=== PATIENT | female | born 1970 | race African-American/Black ===

== ENCOUNTER 2019-09-17 01:49 | Inpatient (IN) ==
[2019-09-17] MEDS ORDERED: SODIUM CHLORIDE 0.9% 1,000 ML IV STA ×2 (02:16→05:48)
[2019-09-17] MEDS ORDERED: MORPHINE 4 MG/1 ML VIAL IV STA (02:16)
[2019-09-17] MEDS ORDERED: ONDANSETRON 4 MG/2 ML VIAL ONE (02:20)
[2019-09-17] MEDS ORDERED: ONDANSETRON 4 MG/2 ML VIAL IV STA (02:44)
[2019-09-17 03:00] LABS: Alanine Aminotransferase 23 U/L (13-56); Albumin 2.8 G/DL (3.4-5.0); Alkaline Phosphatase 80 U/L (45-117); Aspartate Amino Transferase 17 U/L (0-37); Bilirubin,Total < 0.39 MG/DL (0.2-1.0); Blood Urea Nitrogen 36 MG/DL (7-18); Calcium 8.5 MG/DL (8.5-10.1); Estimated Glom Filtration Rate 38 ML/MIN; Glucose 481 MG/DL (74-106); Osmolality,Calculated 292.5 MOS/KG (273-304); Total Protein 8.7 G/DL (6.4-8.3)
[2019-09-17 03:07] LABS: Basophils # 0.1 10*3/uL (0.0-0.2); Basophils % 0.4 % (0.0-0.8); Eosinophils % 0.2 % (0.00-10.9); Hemoglobin 10.7 GM/DL (12.0-16.0); Immature Granulocytes % 0.9 %; Immature Granulocytes Absolute 0.11 #; Lymphocytes # 1.5 10*3/uL (1.4-4.0); Mean Corpuscular HGB Conc 29.7 GM/DL (32-36); Mean Corpuscular Volume 85.7 FL (87-102); Mean Platelet Volume 11.9 FL (9.6-12.0); Monocytes % 3.6 % (1.7-12.7); Neutrophils % 82.9 % (38.7-73.9); Platelet Count 315 T/CUMM (130-400); Red Cell Distribution Width 14.5 % (9.3-17.3); White Blood Count 12.8 T/CUMM (4-12)
[2019-09-17] MEDS ORDERED: HEPARIN 5,000 UNIT/1 ML VIAL IV ONE ×3 (05:01→06:00)
[2019-09-17] MEDS: HEPARIN DRIP 25,000 UNITS/500 ML PREMIX IV SCH (05:40)
[2019-09-17] MEDS: PIPERACILLIN/TAZOBACTAM 3,375 MG in SODIUM CHLORIDE 0.9% 100 ML IV SCH ×2 (08:06→16:30)
[2019-09-17] MEDS ORDERED: PROMETHAZINE 25 MG/1 ML VIAL IM PRN (08:49)
[2019-09-17] MEDS ORDERED: ALBUTEROL/IPRATROPIUM 3 ML NEB RESP TX PRN (08:49)
[2019-09-17] MEDS ORDERED: SULFAMETHOX/TRIMETHOPRIM 400-80 MG TABLET PO SCH (09:00)
[2019-09-17] MEDS ORDERED: ELVITEG COB EMTRI TENOF ALAFEN PO SCH (09:00)
[2019-09-17 09:43] LABS: Apearance,Urine Slightly Hazy (Clear); Bacteria,Urine Occasional /HPF (Few); Bilirubin,Urine Negative (Negative); Blood, Urine Small mg/dL (Negative); Glucose,Urine (UA) >=500 mg/dL (Negative); Hyaline Casts,Urine 4 /LPF (0-3); Ketones,Urine Negative (Negative); Mucus,Urine Occasional /LPF (Occasional); Nitrite,Urine Negative (Negative); Protein,Urine 100 MG/DL; RBC,Urine 2 /HPF (0-4); Squamous Epithelial Cell,Urine Occasional /HPF (0-10); Urine Color Yellow (Yellow); Urine Specific Gravity 1.028 (1.001-1.035); Urine Urobilinogen < 2.0 EU/DL (0.2-1.0); WBC,Urine <1 /HPF (0-6)
[2019-09-17] MEDS: LACTATED RINGERS 1,000 ML IV SCH ×3 (09:46→21:15)
[2019-09-17] MEDS: MORPHINE 4 MG/1 ML VIAL IV PRN (09:47)
[2019-09-17] MEDS: PANTOPRAZOLE 40 MG VIAL IV SCH (09:54)
[2019-09-17] MEDS ORDERED: LACTATED RINGERS 1,000 ML IV ONE ×2 (10:51→15:09)
[2019-09-17] MEDS ORDERED: LEVOFLOXACIN INJ 750 MG in PREMIX 1 EACH IV SCH (11:30)
[2019-09-17] MEDS: INSULIN REGULAR 100 UNIT/ML SUBCUT SCH ×3 (15:10→21:12)
[2019-09-17] MEDS: metroNIDAZOLE INJ 500 MG in PREMIX 1 EACH IV SCH ×2 (15:30→21:17)
[2019-09-17] MEDS ORDERED: PHENYLEPHRINE DRIP 40 MG/250 ML PREMIX IV ONE (17:27)
[2019-09-17] MEDS: PHENYLEPHRINE DRIP 40 MG/250 ML PREMIX IV PRN ×2 (17:45→22:20)
[2019-09-18] MEDS ORDERED: LACTATED RINGERS 1,000 ML IV ONE ×2 (00:05→04:50)
[2019-09-18] MEDS: INSULIN REGULAR 100 UNIT/ML SUBCUT SCH ×4 (00:05→17:53)
[2019-09-18] MEDS: PIPERACILLIN/TAZOBACTAM 3,375 MG in SODIUM CHLORIDE 0.9% 100 ML IV SCH ×3 (00:10→17:51)
[2019-09-18] MEDS: PHENYLEPHRINE DRIP 40 MG/250 ML PREMIX IV PRN ×6 (00:35→18:41)
[2019-09-18] MEDS: INSULIN REGULAR DRIP 100 ML IV PRN ×2 (01:27→17:00)
[2019-09-18] MEDS: NOREPINEPHRINE 8 MG in SODIUM CHLORIDE 0.9% 242 ML IV PRN ×2 (01:27→17:51)
[2019-09-18] MEDS ORDERED: CLINDAMYCIN INJ 900 MG in PREMIX 1 EACH IV ONE (05:00)
[2019-09-18] MEDS: metroNIDAZOLE INJ 500 MG in PREMIX 1 EACH IV SCH ×4 (05:04→22:58)
[2019-09-18] MEDS: LACTATED RINGERS 1,000 ML IV SCH ×2 (05:55→12:00)
[2019-09-18] MEDS ORDERED: ALBUMIN 5% 12.5 GM/250 ML VIAL IV ONE (05:59)
[2019-09-18 06:11] LABS: Basophils % 0.1 % (0.0-0.8); Immature Granulocytes % 3.4 %; Immature Granulocytes Absolute 0.39 #; Lymphocytes % 8.2 % (21.3-54.2); Mean Corpuscular HGB Conc 28.3 GM/DL (32-36); Mean Corpuscular Volume 91.5 FL (87-102); Mean Platelet Volume 11.1 FL (9.6-12.0); Monocytes % 3.5 % (1.7-12.7); NRBC # 0.03 10*3/uL; Neutrophils % 84.8 % (38.7-73.9); Platelet Count 143 T/CUMM (130-400); Red Blood Count 1.89 MC/CUMM (3.8-5.5); Red Cell Distribution Width 14.8 % (9.3-17.3); White Blood Count 11.6 T/CUMM (4-12)
[2019-09-18 06:16] LABS: Alanine Aminotransferase 143 U/L (13-56); Albumin 1.8 G/DL (3.4-5.0); Alkaline Phosphatase 39 U/L (45-117); Aspartate Amino Transferase 303 U/L (0-37); Bilirubin,Total < 0.39 MG/DL (0.2-1.0); Blood Urea Nitrogen 44 MG/DL (7-18); Calcium 7.1 MG/DL (8.5-10.1); Estimated Glom Filtration Rate 18 ML/MIN; Glucose 467 MG/DL (74-106); Osmolality,Calculated 296.4 MOS/KG (273-304); Total Protein 5.2 G/DL (6.4-8.3)
[2019-09-18 06:17] LABS: Hematocrit 17.3 VOL% (35.7-47.0); Hemoglobin 4.9 GM/DL (12.0-16.0)
[2019-09-18 06:31] LABS: Hypochromasia 1+
[2019-09-18] MEDS ORDERED: PHENYLEPHRINE DRIP 20 MG/250 ML PREMIX IV ONE (06:52)
[2019-09-18] MEDS ORDERED: SODIUM CHLORIDE 0.9% 1,000 ML IV PRN ×4 (07:03→21:26)
[2019-09-18] MEDS ORDERED: SEVOFLURANE 1 UNIT/15 MINUTE INH ONE (08:03)
[2019-09-18] MEDS ORDERED: SODIUM CHLORIDE 0.9% 1,000 ML IV ONE (08:04)
[2019-09-18] MEDS ORDERED: MIDAZOLAM 2 MG/2 ML VIAL ONE (08:04)
[2019-09-18] MEDS ORDERED: ROCURONIUM 100 MG/10 ML VIAL IV ONE (08:04)
[2019-09-18] MEDS ORDERED: KETAMINE 500 MG/10 ML VIAL ONE (08:04)
[2019-09-18] MEDS ORDERED: SUCCINYLCHOLINE 200 MG/10 ML VIAL ONE (08:04)
[2019-09-18] MEDS ORDERED: MIDAZOLAM 10 MG/2 ML VIAL ONE (08:04)
[2019-09-18] MEDS ORDERED: ETOMIDATE 40 MG/20 ML VIAL IV ONE (08:04)
[2019-09-18 09:14] LABS: ABG Base Excess -18.2 MMOL/L (-2.5-2.5); ABG HCO3 10.7 MMOL/L (20-26); ABG PCO2 33.1 MM HG (35-48); ABG PO2 87.8 MM HG (80-95)
[2019-09-18 09:15] LABS: ABG PH 7.104 (7.35-7.45)
[2019-09-18] MEDS: PANTOPRAZOLE 40 MG VIAL IV SCH (09:15)
[2019-09-18 10:21] LABS: Hematocrit 27.6 VOL% (35.7-47.0)
[2019-09-18 10:31] LABS: Hemoglobin 8.4 GM/DL (12.0-16.0)
[2019-09-18 10:47] LABS: Basophils % 0.2 % (0.0-0.8); Eosinophils % 0.1 % (0.00-10.9); Hemoglobin 8.6 GM/DL (12.0-16.0); Immature Granulocytes % 4.4 %; Immature Granulocytes Absolute 0.41 #; Lymphocytes # 1.2 10*3/uL (1.4-4.0); Lymphocytes % 12.6 % (21.3-54.2); Mean Corpuscular HGB Conc 29.7 GM/DL (32-36); Mean Corpuscular Volume 94.5 FL (87-102); Mean Platelet Volume 11.4 FL (9.6-12.0); Monocytes % 4.3 % (1.7-12.7); NRBC # 0.03 10*3/uL; Neutrophils % 78.4 % (38.7-73.9); Red Cell Distribution Width 16.4 % (9.3-17.3); White Blood Count 9.4 T/CUMM (4-12)
[2019-09-18 10:52] LABS: Platelet Count 81 T/CUMM (130-400); Red Blood Count 3.07 MC/CUMM (3.8-5.5)
[2019-09-18 11:05] LABS: Band Neutrophils 1 % (0-10); Lymphocytes 16 % (20-55); Nucleated Red Blood Cells 1 (0-5); Platelet Estimate Decreased; Segmented Neutrophils 79 % (50-85); Total Cells Counted 100
[2019-09-18 11:06] LABS: Hypochromasia 1+
[2019-09-18 11:16] LABS: Alanine Aminotransferase 224 U/L (13-56); Albumin 1.7 G/DL (3.4-5.0); Alkaline Phosphatase 38 U/L (45-117); Aspartate Amino Transferase 586 U/L (0-37); Bilirubin,Total < 0.39 MG/DL (0.2-1.0); Blood Urea Nitrogen 44 MG/DL (7-18); Calcium 7.3 MG/DL (8.5-10.1); Estimated Glom Filtration Rate 19 ML/MIN; Glucose 268 MG/DL (74-106); Osmolality,Calculated 287.2 MOS/KG (273-304); Total Protein 5.3 G/DL (6.4-8.3)
[2019-09-18 12:41] LABS: ABG Base Excess -15.9 MMOL/L (-2.5-2.5); ABG HCO3 11.6 MMOL/L (20-26); ABG Oxygen Saturation 96.1 % (95-100); ABG PCO2 33.4 MM HG (35-48); ABG PO2 88.3 MM HG (80-95); ABG TCO2 12.6 MMOL/L (23-27); Allen Test Positive; Pt O2 Delivery Device Ventilator
[2019-09-18 12:43] LABS: ABG PH 7.158 (7.35-7.45)
[2019-09-18] MEDS: HEPARIN DRIP 25,000 UNITS/500 ML PREMIX IV SCH (13:45)
[2019-09-18] MEDS: ELVITEG COB EMTRI TENOF ALAFEN PO SCH (13:46)
[2019-09-18] MEDS: SULFAMETHOX/TRIMETHOPRIM 800-160 MG TABLET PO SCH (13:46)
[2019-09-18] MEDS: SODIUM BICARB INJ 100 MEQ in SODIUM CHLORIDE 0.45% 1,000 ML IV SCH (14:30)
[2019-09-18] MEDS: DEXTROSE 10% 250 ML BAG IV PRN (18:19)
[2019-09-18] MEDS: ONDANSETRON 4 MG/2 ML VIAL IV PRN (19:22)
[2019-09-18] MEDS: MORPHINE 4 MG/1 ML VIAL IV PRN ×2 (19:28→23:01)
[2019-09-18 21:18] LABS: Basophils % 0.2 % (0.0-0.8); Hematocrit 21.5 VOL% (35.7-47.0); Immature Granulocytes % 1.4 %; Immature Granulocytes Absolute 0.09 #; Lymphocytes # 0.7 10*3/uL (1.4-4.0); Lymphocytes % 10.6 % (21.3-54.2); Mean Corpuscular HGB Conc 32.6 GM/DL (32-36); Mean Corpuscular Volume 86.7 FL (87-102); Mean Platelet Volume 10.8 FL (9.6-12.0); Monocytes % 9.1 % (1.7-12.7); NRBC # 0.19 10*3/uL; Neutrophils % 78.7 % (38.7-73.9); Platelet Count 61 T/CUMM (130-400); Red Blood Count 2.48 MC/CUMM (3.8-5.5); Red Cell Distribution Width 15.1 % (9.3-17.3); White Blood Count 6.4 T/CUMM (4-12)
[2019-09-18 21:49] LABS: Band Neutrophils 6 % (0-10); Lymphocytes 10 % (20-55); Nucleated Red Blood Cells 1 (0-5); Segmented Neutrophils 80 % (50-85); Total Cells Counted 100
[2019-09-18 21:51] LABS: Platelet Estimate Decreased; Polychromasia Slight
[2019-09-19] MEDS: SODIUM BICARB INJ 100 MEQ in SODIUM CHLORIDE 0.45% 1,000 ML IV SCH ×3 (00:41→23:02)
[2019-09-19] MEDS ORDERED: ACETAMINOPHEN 650 MG SUPP RECTAL PRN (00:54)
[2019-09-19] MEDS: INSULIN REGULAR 100 UNIT/ML SUBCUT SCH ×4 (01:24→17:00)
[2019-09-19] MEDS: PIPERACILLIN/TAZOBACTAM 3,375 MG in SODIUM CHLORIDE 0.9% 100 ML IV SCH ×2 (01:41→11:28)
[2019-09-19] MEDS: PHENYLEPHRINE DRIP 40 MG/250 ML PREMIX IV PRN ×2 (01:43→08:30)
[2019-09-19] MEDS: MORPHINE 4 MG/1 ML VIAL IV PRN ×3 (03:35→10:40)
[2019-09-19] MEDS: metroNIDAZOLE INJ 500 MG in PREMIX 1 EACH IV SCH ×4 (03:36→23:02)
[2019-09-19 04:15] LABS: ABG Base Excess -8.6 MMOL/L (-2.5-2.5); ABG HCO3 17.5 MMOL/L (20-26); ABG Oxygen Saturation 99.2 % (95-100); ABG PCO2 27.4 MM HG (35-48); ABG PH 7.368 (7.35-7.45); ABG TCO2 14.7 MMOL/L (23-27); Allen Test Positive; Pt O2 Delivery Device Ventilator
[2019-09-19 04:16] LABS: Basophils % 0.1 % (0.0-0.8); Hematocrit 23.8 VOL% (35.7-47.0); Immature Granulocytes % 1.1 %; Immature Granulocytes Absolute 0.11 #; Lymphocytes # 1.1 10*3/uL (1.4-4.0); Mean Corpuscular HGB Conc 33.6 GM/DL (32-36); Mean Corpuscular Volume 83.2 FL (87-102); NRBC # 0.28 10*3/uL; Neutrophils % 79.8 % (38.7-73.9); Platelet Count 57 T/CUMM (130-400); Red Blood Count 2.86 MC/CUMM (3.8-5.5); Red Cell Distribution Width 15.1 % (9.3-17.3); White Blood Count 10.4 T/CUMM (4-12)
[2019-09-19 04:37] LABS: Band Neutrophils 4 % (0-10); Lymphocytes 7 % (20-55); Nucleated Red Blood Cells 1 (0-5); Platelet Estimate Decreased; Segmented Neutrophils 85 % (50-85); Total Cells Counted 100
[2019-09-19 04:38] LABS: Hypochromasia 1+
[2019-09-19 04:39] LABS: Albumin 1.6 G/DL (3.4-5.0); Bilirubin,Total 0.9 MG/DL (0.2-1.0); Calcium 7.3 MG/DL (8.5-10.1); Total Protein 4.8 G/DL (6.4-8.3)
[2019-09-19] MEDS: ONDANSETRON 4 MG/2 ML VIAL IV PRN (06:04)
[2019-09-19] MEDS ORDERED: SODIUM POLYSTYRENE SULFATE 15 GM/60 ML BOTTLE RECTAL ONE (08:20)
[2019-09-19] MEDS ORDERED: MAGNESIUM SULF RIDER 4 GM in PREMIX 1 EACH IV ONE (08:20)
[2019-09-19] MEDS: PANTOPRAZOLE 40 MG VIAL IV SCH (08:38)
[2019-09-19] MEDS: LEVOFLOXACIN INJ 750 MG in PREMIX 1 EACH IV SCH (08:38)
[2019-09-19] MEDS: SULFAMETHOX/TRIMETHOPRIM 800-160 MG TABLET PO SCH (09:51)
[2019-09-19] MEDS: ELVITEG COB EMTRI TENOF ALAFEN PO SCH (09:52)
[2019-09-19] MEDS ORDERED: ALBUMIN 25% 25 GM in PREMIX 1 EACH IV ONE (11:55)
[2019-09-19 15:23] LABS: Calcium 7.2 MG/DL (8.5-10.1)
[2019-09-19 15:28] LABS: Osmolality,Calculated 296.5 MOS/KG (273-304)
[2019-09-19] MEDS: HYDROmorphone 2 MG/1 ML VIAL IV PRN (15:36)
[2019-09-19 16:27] LABS: Hematocrit 19.2 VOL% (35.7-47.0)
[2019-09-19 16:32] LABS: Hemoglobin 6.3 GM/DL (12.0-16.0)
[2019-09-19 19:31] LABS: Phospholipid Ab IgM, S < 9.4 MPL
[2019-09-20] MEDS: INSULIN REGULAR 100 UNIT/ML SUBCUT SCH ×4 (01:14→18:15)
[2019-09-20] MEDS: PIPERACILLIN/TAZOBACTAM 3,375 MG in SODIUM CHLORIDE 0.9% 100 ML IV SCH ×2 (01:23→12:58)
[2019-09-20] MEDS: metroNIDAZOLE INJ 500 MG in PREMIX 1 EACH IV SCH ×4 (03:41→20:37)
[2019-09-20 04:50] LABS: Basophils % 0.1 % (0.0-0.8); Hematocrit 21.6 VOL% (35.7-47.0); Hemoglobin 7.4 GM/DL (12.0-16.0); Immature Granulocytes % 0.5 %; Immature Granulocytes Absolute 0.06 #; Lymphocytes # 0.8 10*3/uL (1.4-4.0); Lymphocytes % 6.6 % (21.3-54.2); Mean Corpuscular HGB Conc 34.3 GM/DL (32-36); Mean Corpuscular Volume 86.1 FL (87-102); Mean Platelet Volume 12.4 FL (9.6-12.0); Monocytes % 5.7 % (1.7-12.7); NRBC # 0.24 10*3/uL; Neutrophils % 87.1 % (38.7-73.9); Platelet Count 54 T/CUMM (130-400); Red Blood Count 2.51 MC/CUMM (3.8-5.5); Red Cell Distribution Width 16.1 % (9.3-17.3); White Blood Count 11.3 T/CUMM (4-12)
[2019-09-20 05:26] LABS: Calcium 8.1 MG/DL (8.5-10.1)
[2019-09-20 05:27] LABS: Albumin 1.8 G/DL (3.4-5.0); Bilirubin,Total 0.7 MG/DL (0.2-1.0); Osmolality,Calculated 292.7 MOS/KG (273-304); Total Protein 5.2 G/DL (6.4-8.3)
[2019-09-20 05:48] LABS: Band Neutrophils 8 % (0-10); Hypochromasia 2+; Lymphocytes 6 % (20-55); Segmented Neutrophils 84 % (50-85); Target Cells Slight; Total Cells Counted 100
[2019-09-20 05:49] LABS: Anisocytosis 1+; Microcytosis 1+; Ovalocytes Slight; Polychromasia Slight; Tear Drop Cells Slight
[2019-09-20 05:50] LABS: Platelet Estimate Decreased
[2019-09-20] MEDS: HYDROmorphone 2 MG/1 ML VIAL IV PRN ×4 (06:58→23:58)
[2019-09-20] MEDS ORDERED: SODIUM CHLORIDE 0.9% 1,000 ML IV PRN (07:25)
[2019-09-20] MEDS: SODIUM BICARB INJ 100 MEQ in SODIUM CHLORIDE 0.45% 1,000 ML IV SCH ×4 (07:44→21:14)
[2019-09-20] MEDS: PANTOPRAZOLE 40 MG VIAL IV SCH (08:51)
[2019-09-20] MEDS: SULFAMETHOX/TRIMETHOPRIM 800-160 MG TABLET PO SCH (08:51)
[2019-09-20] MEDS: ELVITEG COB EMTRI TENOF ALAFEN PO SCH (08:52)
[2019-09-20 09:41] LABS: % CD4 (T Cells) 15 % (32-64); % CD8 (T Cells) 57 % (11-40); 4/8 Ratio 0.3 (>=0.9)
[2019-09-20 16:00] LABS: Hematocrit 27.1 VOL% (35.7-47.0)
[2019-09-20] MEDS: CYCLOBENZAPRINE 10 MG TABLET PO PRN (20:28)
[2019-09-21] MEDS: INSULIN REGULAR 100 UNIT/ML SUBCUT SCH ×4 (00:16→17:58)
[2019-09-21] MEDS: PIPERACILLIN/TAZOBACTAM 3,375 MG in SODIUM CHLORIDE 0.9% 100 ML IV SCH ×2 (00:17→11:30)
[2019-09-21 00:50] LABS: ABG HCO3 21.1 MMOL/L (20-26); ABG Oxygen Saturation 99.4 % (95-100); ABG PCO2 68.6 MM HG (35-48); ABG TCO2 24.1 MMOL/L (23-27); Allen Test Positive; Pt O2 Delivery Device BIPAP
[2019-09-21 00:53] LABS: ABG PH 7.179 (7.35-7.45)
[2019-09-21] MEDS ORDERED: VECURONIUM 10 MG VIAL IV ONE (00:58)
[2019-09-21] MEDS ORDERED: ETOMIDATE 20 MG/10 ML VIAL IV ONE (00:59)
[2019-09-21] MEDS ORDERED: ROCURONIUM 100 MG/10 ML VIAL IV ONE (01:03)
[2019-09-21 02:39] LABS: Allen Test Positive; Pt O2 Delivery Device Ventilator
[2019-09-21 02:42] LABS: ABG Base Excess -2.4 MMOL/L (-2.5-2.5); ABG HCO3 22.4 MMOL/L (20-26); ABG PCO2 43.8 MM HG (35-48); ABG PH 7.336 (7.35-7.45); ABG TCO2 21.4 MMOL/L (23-27)
[2019-09-21] MEDS: metroNIDAZOLE INJ 500 MG in PREMIX 1 EACH IV SCH ×4 (02:57→21:02)
[2019-09-21 04:47] LABS: Hematocrit 27.1 VOL% (35.7-47.0); Hemoglobin 8.8 GM/DL (12.0-16.0); Red Blood Count 3.11 MC/CUMM (3.8-5.5)
[2019-09-21 04:48] LABS: Basophils % 0.3 % (0.0-0.8); Eosinophils % 0.2 % (0.00-10.9); Immature Granulocytes % 0.8 %; Immature Granulocytes Absolute 0.11 #; Lymphocytes # 0.7 10*3/uL (1.4-4.0); Lymphocytes % 5.5 % (21.3-54.2); Mean Corpuscular HGB Conc 32.5 GM/DL (32-36); Mean Corpuscular Volume 87.1 FL (87-102); Mean Platelet Volume 10.9 FL (9.6-12.0); Monocytes % 4.8 % (1.7-12.7); NRBC # 0.41 10*3/uL; Neutrophils % 88.4 % (38.7-73.9); Red Cell Distribution Width 16.2 % (9.3-17.3)
[2019-09-21 04:54] LABS: Platelet Count 50 T/CUMM (130-400)
[2019-09-21 05:02] LABS: Albumin 1.7 G/DL (3.4-5.0); Bilirubin,Total 0.7 MG/DL (0.2-1.0); Calcium 8.4 MG/DL (8.5-10.1); Osmolality,Calculated 294.4 MOS/KG (273-304); Total Protein 5.8 G/DL (6.4-8.3)
[2019-09-21 05:58] LABS: Anisocytosis 2+; Band Neutrophils 31 % (0-10); Lymphocytes 5 % (20-55); Nucleated Red Blood Cells 1 (0-5); Platelet Estimate Decreased; Segmented Neutrophils 60 % (50-85); Total Cells Counted 100
[2019-09-21 05:59] LABS: Smudge Cells Few; Target Cells Few
[2019-09-21] MEDS: SODIUM BICARB INJ 100 MEQ in SODIUM CHLORIDE 0.45% 1,000 ML IV SCH ×3 (06:46→16:09)
[2019-09-21] MEDS: PANTOPRAZOLE 40 MG VIAL IV SCH (08:08)
[2019-09-21] MEDS: SULFAMETHOX/TRIMETHOPRIM 800-160 MG TABLET PO SCH (08:08)
[2019-09-21] MEDS: ELVITEG COB EMTRI TENOF ALAFEN PO SCH (08:08)
[2019-09-21] MEDS: LEVOFLOXACIN INJ 750 MG in PREMIX 1 EACH IV SCH (08:09)
[2019-09-21] MEDS: HYDROmorphone 2 MG/1 ML VIAL IV PRN (13:58)
[2019-09-21 15:01] LABS: F5DNA Reviewed By SEE COMMENTS; Factor V Leiden (R506Q) Mutati Negative (Negative); PTNT Reviewed By SEE COMMENTS
[2019-09-21] MEDS ORDERED: MULTIVITAMIN IV SCH ×2 (17:00)
[2019-09-21] MEDS ORDERED: TRACE ELEMENTS IV SCH ×2 (17:00)
[2019-09-21] MEDS ORDERED: [UNRECOGNIZED DRUG - OTHER] IV SCH (17:00)
[2019-09-21] MEDS ORDERED: DEXTROSE 10% 1,000 ML IV PRN (17:00)
[2019-09-21] MEDS ORDERED: [UNRECOGNIZED DRUG - OTHER] IV SCH (17:00)
[2019-09-21] MEDS ORDERED: AMINO ACIDS IV SCH ×2 (17:00)
[2019-09-22] MEDS: INSULIN REGULAR 100 UNIT/ML SUBCUT SCH ×4 (00:29→17:26)
[2019-09-22] MEDS: PIPERACILLIN/TAZOBACTAM 3,375 MG in SODIUM CHLORIDE 0.9% 100 ML IV SCH ×2 (00:30→11:19)
[2019-09-22 04:05] LABS: ABG HCO3 26.6 MMOL/L (20-26); ABG Oxygen Saturation 98.6 % (95-100); ABG PH 7.537 (7.35-7.45); ABG PO2 190.6 MM HG (80-95); ABG TCO2 27.5 MMOL/L (23-27)
[2019-09-22] MEDS: metroNIDAZOLE INJ 500 MG in PREMIX 1 EACH IV SCH ×4 (04:05→21:07)
[2019-09-22 04:54] LABS: Basophils % 0.3 % (0.0-0.8); Eosinophils # 0.2 10*3/uL (0.0-0.87); Eosinophils % 1.2 % (0.00-10.9); Hematocrit 25.3 VOL% (35.7-47.0); Hemoglobin 8.7 GM/DL (12.0-16.0); Immature Granulocytes % 1.9 %; Immature Granulocytes Absolute 0.24 #; Lymphocytes # 0.7 10*3/uL (1.4-4.0); Lymphocytes % 5.3 % (21.3-54.2); Mean Corpuscular HGB Conc 34.4 GM/DL (32-36); Mean Corpuscular Volume 86.3 FL (87-102); Mean Platelet Volume 11.4 FL (9.6-12.0); Monocytes % 5.5 % (1.7-12.7); NRBC # 0.68 10*3/uL; Neutrophils % 85.8 % (38.7-73.9); Red Blood Count 2.93 MC/CUMM (3.8-5.5); Red Cell Distribution Width 16.9 % (9.3-17.3)
[2019-09-22 04:55] LABS: Platelet Count 57 T/CUMM (130-400)
[2019-09-22 05:12] LABS: Albumin 1.4 G/DL (3.4-5.0); Bilirubin,Total 0.6 MG/DL (0.2-1.0); Calcium 7.9 MG/DL (8.5-10.1); Osmolality,Calculated 298.4 MOS/KG (273-304); Total Protein 5.7 G/DL (6.4-8.3)
[2019-09-22 05:36] LABS: Prealbumin 12.6 MG/DL (20-40)
[2019-09-22 05:53] LABS: Band Neutrophils 2 % (0-10); Eosinophils 4 % (0-10); Hypochromasia 1+; Lymphocytes 3 % (20-55); Microcytosis Slight; Nucleated Red Blood Cells 4 (0-5); Platelet Estimate Decreased; Segmented Neutrophils 90 % (50-85); Total Cells Counted 100
[2019-09-22] MEDS: HYDROmorphone 2 MG/1 ML VIAL IV PRN ×2 (07:55→15:36)
[2019-09-22] MEDS: PANTOPRAZOLE 40 MG VIAL IV SCH (08:00)
[2019-09-22] MEDS: ELVITEG COB EMTRI TENOF ALAFEN PO SCH (08:00)
[2019-09-22] MEDS: SULFAMETHOX/TRIMETHOPRIM 800-160 MG TABLET PO SCH (08:00)
[2019-09-22] MEDS ORDERED: POTASSIUM CHLORIDE RIDER 10 MEQ in PREMIX 1 EACH IV PRN (08:24)
[2019-09-22] MEDS ORDERED: POTASSIUM CHLORIDE RIDER 20 MEQ in PREMIX 1 EACH IV PRN (08:24)
[2019-09-22 13:23] LABS: ABG Base Excess 3.7 MMOL/L (-2.5-2.5); ABG HCO3 27.8 MMOL/L (20-26); ABG Oxygen Saturation 99.5 % (95-100); ABG PCO2 37.4 MM HG (35-48); ABG PH 7.473 (7.35-7.45); Allen Test Positive; Pt O2 Delivery Device Ventilator
[2019-09-22] MEDS ORDERED: [UNRECOGNIZED DRUG - OTHER] IV SCH (17:00)
[2019-09-22] MEDS ORDERED: MULTIVITAMIN IV SCH ×2 (17:00)
[2019-09-22] MEDS ORDERED: TRACE ELEMENTS IV SCH ×2 (17:00)
[2019-09-22] MEDS ORDERED: ELECTROLYTE CONCENTRATE 40 ML, TRACE ELEMENTS (5) 1 ML, MULTIVITAMIN INJ 10 ML in AMINO... IV SCH (17:00)
[2019-09-22] MEDS ORDERED: AMINO ACIDS IV SCH ×2 (17:00)
[2019-09-22] MEDS ORDERED: [UNRECOGNIZED DRUG - OTHER] IV SCH (17:00)
[2019-09-23] MEDS: PIPERACILLIN/TAZOBACTAM 3,375 MG in SODIUM CHLORIDE 0.9% 100 ML IV SCH ×2 (00:49→11:43)
[2019-09-23] MEDS: INSULIN REGULAR 100 UNIT/ML SUBCUT SCH ×4 (00:49→17:55)
[2019-09-23 03:45] LABS: ABG Base Excess 2.1 MMOL/L (-2.5-2.5); ABG HCO3 25.9 MMOL/L (20-26); ABG Oxygen Saturation 98.8 % (95-100); ABG PCO2 37.1 MM HG (35-48); ABG PH 7.462 (7.35-7.45); ABG PO2 192.7 MM HG (80-95); ABG TCO2 27.1 MMOL/L (23-27); Allen Test Positive; Pt O2 Delivery Device Ventilator
[2019-09-23] MEDS: metroNIDAZOLE INJ 500 MG in PREMIX 1 EACH IV SCH ×4 (03:50→21:08)
[2019-09-23 05:05] LABS: Basophils % 0.3 % (0.0-0.8); Eosinophils # 0.3 10*3/uL (0.0-0.87); Eosinophils % 2.1 % (0.00-10.9); Hemoglobin 8.3 GM/DL (12.0-16.0); Immature Granulocytes % 8.1 %; Immature Granulocytes Absolute 1.03 #; Lymphocytes # 0.9 10*3/uL (1.4-4.0); Lymphocytes % 7.1 % (21.3-54.2); Mean Corpuscular HGB Conc 33.2 GM/DL (32-36); Mean Platelet Volume 12.7 FL (9.6-12.0); Monocytes % 8.6 % (1.7-12.7); NRBC # 0.35 10*3/uL; Neutrophils % 73.8 % (38.7-73.9); Red Blood Count 2.84 MC/CUMM (3.8-5.5); Red Cell Distribution Width 16.9 % (9.3-17.3); White Blood Count 12.7 T/CUMM (4-12)
[2019-09-23 05:06] LABS: Platelet Count 74 T/CUMM (130-400)
[2019-09-23 05:42] LABS: Albumin 1.3 G/DL (3.4-5.0); Bilirubin,Total 0.5 MG/DL (0.2-1.0); Calcium 7.8 MG/DL (8.5-10.1); Osmolality,Calculated 299.5 MOS/KG (273-304); Total Protein 5.5 G/DL (6.4-8.3)
[2019-09-23 06:05] LABS: Band Neutrophils 4 % (0-10); Eosinophils 3 % (0-10); Hypochromasia 1+; Lymphocytes 8 % (20-55); Myelocytes 1 %; Nucleated Red Blood Cells 5 (0-5); Platelet Estimate Decreased; Segmented Neutrophils 79 % (50-85); Total Cells Counted 100
[2019-09-23 06:06] LABS: Microcytosis Slight
[2019-09-23] MEDS: SULFAMETHOX/TRIMETHOPRIM 800-160 MG TABLET PO SCH (08:31)
[2019-09-23] MEDS: LEVOFLOXACIN INJ 750 MG in PREMIX 1 EACH IV SCH (08:31)
[2019-09-23] MEDS: PANTOPRAZOLE 40 MG VIAL IV SCH (08:31)
[2019-09-23] MEDS: ELVITEG COB EMTRI TENOF ALAFEN PO SCH (08:31)
[2019-09-23] MEDS ORDERED: ACETAMINOPHEN 325 MG/10.15 ML UDCUP PO PRN (09:01)
[2019-09-23] MEDS ORDERED: FLUCONAZOLE INJ 200 MG in PREMIX 1 EACH IV SCH (10:00)
[2019-09-23] MEDS: MAGNESIUM SULF RIDER 2 GM in PREMIX 1 EACH IV PRN (10:34)
[2019-09-23] MEDS: FLUCONAZOLE INJ 100 MG in IV BAG 1 EACH IV SCH (10:34)
[2019-09-23] MEDS: HYDROmorphone 2 MG/1 ML VIAL IV PRN (11:44)
[2019-09-23 16:36] LABS: % CD16+CD56 (NK cells) 6 % (5-28); % CD19 (B Cells) 20 % (5-24); % CD4 (T Cells) 10 % (32-64); 4/8 Ratio 0.2 (>=0.9); CD16+CD56 (NK cells) 41 cells/mcL (59-513); CD19 (B Cells) 131 cells/mcL (60-409)
[2019-09-23] MEDS: NYSTATIN POWDER 15 GM BOTTLE TOP SCH ×2 (17:54→21:09)
[2019-09-24] MEDS ORDERED: PHENYLEPHRINE DRIP 40 MG/250 ML PREMIX IV ONE (00:30)
[2019-09-24] MEDS: INSULIN REGULAR 100 UNIT/ML SUBCUT SCH ×5 (00:39→23:53)
[2019-09-24] MEDS: PIPERACILLIN/TAZOBACTAM 3,375 MG in SODIUM CHLORIDE 0.9% 100 ML IV SCH ×3 (00:39→23:54)
[2019-09-24] MEDS: metroNIDAZOLE INJ 500 MG in PREMIX 1 EACH IV SCH ×4 (03:55→21:05)
[2019-09-24 04:28] LABS: Allen Test Positive; Pt O2 Delivery Device Ventilator
[2019-09-24 04:29] LABS: ABG Base Excess -0.3 MMOL/L (-2.5-2.5); ABG HCO3 24.2 MMOL/L (20-26); ABG Oxygen Saturation 97.9 % (95-100); ABG PCO2 35.4 MM HG (35-48); ABG PH 7.433 (7.35-7.45); ABG PO2 90.5 MM HG (80-95); ABG TCO2 21.9 MMOL/L (23-27)
[2019-09-24 04:38] LABS: Basophils # 0.1 10*3/uL (0.0-0.2); Basophils % 0.5 % (0.0-0.8); Eosinophils # 0.3 10*3/uL (0.0-0.87); Eosinophils % 1.8 % (0.00-10.9); Hematocrit 25.3 VOL% (35.7-47.0); Hemoglobin 8.4 GM/DL (12.0-16.0); Immature Granulocytes % 8.5 %; Immature Granulocytes Absolute 1.26 #; Lymphocytes # 1.4 10*3/uL (1.4-4.0); Lymphocytes % 9.2 % (21.3-54.2); Mean Corpuscular HGB Conc 33.2 GM/DL (32-36); Mean Corpuscular Volume 86.3 FL (87-102); Mean Platelet Volume 12.1 FL (9.6-12.0); Monocytes % 11.2 % (1.7-12.7); Neutrophils % 68.8 % (38.7-73.9); Platelet Count 115 T/CUMM (130-400); Red Blood Count 2.93 MC/CUMM (3.8-5.5); Red Cell Distribution Width 17.4 % (9.3-17.3); White Blood Count 14.8 T/CUMM (4-12)
[2019-09-24 05:05] LABS: Band Neutrophils 4 % (0-10); Hypochromasia 1+; Lymphocytes 13 % (20-55); Segmented Neutrophils 70 % (50-85); Total Cells Counted 100
[2019-09-24 05:06] LABS: Anisocytosis 1+; Microcytosis 1+; Platelet Estimate Decreased; Polychromasia Slight; Target Cells Slight
[2019-09-24 05:07] LABS: Albumin 1.4 G/DL (3.4-5.0); Bilirubin,Total 0.5 MG/DL (0.2-1.0); Calcium 7.8 MG/DL (8.5-10.1); Osmolality,Calculated 298.5 MOS/KG (273-304); Total Protein 5.9 G/DL (6.4-8.3)
[2019-09-24] MEDS: MAGNESIUM SULF RIDER 2 GM in PREMIX 1 EACH IV PRN (06:42)
[2019-09-24] MEDS: ELVITEG COB EMTRI TENOF ALAFEN PO SCH (08:31)
[2019-09-24] MEDS: SULFAMETHOX/TRIMETHOPRIM 800-160 MG TABLET PO SCH (08:31)
[2019-09-24] MEDS: PANTOPRAZOLE 40 MG VIAL IV SCH (08:32)
[2019-09-24] MEDS: NYSTATIN POWDER 15 GM BOTTLE TOP SCH ×2 (08:32→21:19)
[2019-09-24] MEDS: FLUCONAZOLE INJ 100 MG in IV BAG 1 EACH IV SCH (09:42)
[2019-09-24] MEDS ORDERED: VECURONIUM 10 MG VIAL IV ONE ×2 (10:54)
[2019-09-24] MEDS: ALBUTEROL/IPRATROPIUM 3 ML NEB RESP TX SCH (19:40)
[2019-09-25] MEDS: ALBUTEROL/IPRATROPIUM 3 ML NEB RESP TX SCH ×4 (02:45→19:43)
[2019-09-25] MEDS: metroNIDAZOLE INJ 500 MG in PREMIX 1 EACH IV SCH ×2 (02:53→08:20)
[2019-09-25] MEDS: INSULIN REGULAR 100 UNIT/ML SUBCUT SCH ×3 (06:23→17:30)
[2019-09-25] MEDS: SULFAMETHOX/TRIMETHOPRIM 800-160 MG TABLET PO SCH (08:20)
[2019-09-25] MEDS: ELVITEG COB EMTRI TENOF ALAFEN PO SCH (08:20)
[2019-09-25] MEDS: LEVOFLOXACIN INJ 750 MG in PREMIX 1 EACH IV SCH (08:20)
[2019-09-25] MEDS: NYSTATIN POWDER 15 GM BOTTLE TOP SCH ×2 (08:52→20:18)
[2019-09-25] MEDS: PANTOPRAZOLE 40 MG VIAL IV SCH (08:52)
[2019-09-25 09:43] LABS: Basophils % 0.2 % (0.0-0.8); Eosinophils # 0.2 10*3/uL (0.0-0.87); Hematocrit 25.4 VOL% (35.7-47.0); Hemoglobin 8.1 GM/DL (12.0-16.0); Immature Granulocytes % 6.9 %; Immature Granulocytes Absolute 1.34 #; Lymphocytes # 1.4 10*3/uL (1.4-4.0); Lymphocytes % 7.3 % (21.3-54.2); Mean Corpuscular HGB Conc 31.9 GM/DL (32-36); Mean Corpuscular Volume 89.4 FL (87-102); Mean Platelet Volume 11.4 FL (9.6-12.0); Monocytes % 9.6 % (1.7-12.7); NRBC # 0.04 10*3/uL; Platelet Count 194 T/CUMM (130-400); Red Blood Count 2.84 MC/CUMM (3.8-5.5); Red Cell Distribution Width 17.6 % (9.3-17.3); White Blood Count 19.4 T/CUMM (4-12)
[2019-09-25] MEDS: FLUCONAZOLE INJ 100 MG in IV BAG 1 EACH IV SCH (09:52)
[2019-09-25 10:02] LABS: Band Neutrophils 3 % (0-10); Hypochromasia 1+; Lymphocytes 4 % (20-55); Metamyelocytes 1 %; Polychromasia Slight; Segmented Neutrophils 84 % (50-85); Total Cells Counted 100
[2019-09-25 10:03] LABS: Microcytosis 1+; Target Cells Slight
[2019-09-25 10:05] LABS: Platelet Estimate Adequate
[2019-09-25 10:19] LABS: Calcium 7.9 MG/DL (8.5-10.1); Osmolality,Calculated 299.4 MOS/KG (273-304)
[2019-09-25] MEDS: LOPERAMIDE 1 MG/7.5 ML 30 ML BOTTLE PO SCH (14:26)
[2019-09-25] MEDS: HYDROmorphone 2 MG/1 ML VIAL IV PRN (23:03)
[2019-09-26] MEDS: ALBUTEROL/IPRATROPIUM 3 ML NEB RESP TX SCH ×4 (00:52→21:20)
[2019-09-26] MEDS: INSULIN REGULAR 100 UNIT/ML SUBCUT SCH ×4 (01:06→17:58)
[2019-09-26 04:29] LABS: ABG HCO3 24.4 MMOL/L (20-26); ABG Oxygen Saturation 99.2 % (95-100); ABG PCO2 30.9 MM HG (35-48); ABG TCO2 21.3 MMOL/L (23-27); Allen Test Positive; Pt O2 Delivery Device Ventilator
[2019-09-26 06:35] LABS: Basophils # 0.1 10*3/uL (0.0-0.2); Basophils % 0.4 % (0.0-0.8); Eosinophils # 0.2 10*3/uL (0.0-0.87); Eosinophils % 1.1 % (0.00-10.9); Hematocrit 29.2 VOL% (35.7-47.0); Hemoglobin 9.2 GM/DL (12.0-16.0); Immature Granulocytes % 5.9 %; Immature Granulocytes Absolute 1.18 #; Lymphocytes # 1.4 10*3/uL (1.4-4.0); Lymphocytes % 7.1 % (21.3-54.2); Mean Corpuscular HGB Conc 31.5 GM/DL (32-36); Mean Corpuscular Volume 90.1 FL (87-102); Mean Platelet Volume 11.1 FL (9.6-12.0); Monocytes % 10.5 % (1.7-12.7); NRBC # 0.04 10*3/uL; Platelet Count 236 T/CUMM (130-400); Red Blood Count 3.24 MC/CUMM (3.8-5.5); White Blood Count 20.1 T/CUMM (4-12)
[2019-09-26 06:55] LABS: Calcium 8.2 MG/DL (8.5-10.1); Osmolality,Calculated 294.4 MOS/KG (273-304)
[2019-09-26 07:11] LABS: Band Neutrophils 4 % (0-10); Eosinophils 1 % (0-10); Lymphocytes 9 % (20-55); Platelet Estimate Adequate; Segmented Neutrophils 79 % (50-85); Total Cells Counted 100
[2019-09-26 07:12] LABS: Hypochromasia 1+; Microcytosis 1+
[2019-09-26] MEDS: HYDROmorphone 2 MG/1 ML VIAL IV PRN (08:08)
[2019-09-26] MEDS: NYSTATIN POWDER 15 GM BOTTLE TOP SCH ×2 (08:09→21:30)
[2019-09-26] MEDS: SULFAMETHOX/TRIMETHOPRIM 800-160 MG TABLET PO SCH (08:09)
[2019-09-26] MEDS: LOPERAMIDE 1 MG/7.5 ML 30 ML BOTTLE PO SCH (08:09)
[2019-09-26] MEDS: ELVITEG COB EMTRI TENOF ALAFEN PO SCH (08:09)
[2019-09-26] MEDS: PANTOPRAZOLE 40 MG VIAL IV SCH (08:09)
[2019-09-26] MEDS: FLUCONAZOLE INJ 100 MG in IV BAG 1 EACH IV SCH (09:21)
[2019-09-26] MEDS: GLYCOPYRROLATE 1 MG TABLET PER TUBE SCH (17:58)
[2019-09-27] MEDS: HYDROmorphone 2 MG/1 ML VIAL IV PRN ×3 (00:09→11:33)
[2019-09-27] MEDS: INSULIN REGULAR 100 UNIT/ML SUBCUT SCH ×4 (00:24→18:18)
[2019-09-27] MEDS: ALBUTEROL/IPRATROPIUM 3 ML NEB RESP TX SCH ×4 (00:41→19:50)
[2019-09-27 05:23] LABS: Basophils # 0.1 10*3/uL (0.0-0.2); Basophils % 0.3 % (0.0-0.8); Eosinophils # 0.2 10*3/uL (0.0-0.87); Hematocrit 23.2 VOL% (35.7-47.0); Hemoglobin 7.4 GM/DL (12.0-16.0); Immature Granulocytes % 5.5 %; Immature Granulocytes Absolute 1.22 #; Lymphocytes # 1.6 10*3/uL (1.4-4.0); Lymphocytes % 7.1 % (21.3-54.2); Mean Corpuscular HGB Conc 31.9 GM/DL (32-36); Mean Corpuscular Volume 88.5 FL (87-102); Mean Platelet Volume 10.8 FL (9.6-12.0); Monocytes % 8.4 % (1.7-12.7); Neutrophils % 77.7 % (38.7-73.9); Platelet Count 319 T/CUMM (130-400); Red Blood Count 2.62 MC/CUMM (3.8-5.5); Red Cell Distribution Width 17.4 % (9.3-17.3); White Blood Count 22.1 T/CUMM (4-12)
[2019-09-27 05:37] LABS: Calcium 8.4 MG/DL (8.5-10.1); Osmolality,Calculated 293.7 MOS/KG (273-304)
[2019-09-27] MEDS: GLYCOPYRROLATE 1 MG TABLET PER TUBE SCH (05:37)
[2019-09-27 06:31] LABS: Anisocytosis 1+; Band Neutrophils 5 % (0-10); Eosinophils 3 % (0-10); Lymphocytes 6 % (20-55); Platelet Estimate Normal; Poikilocytosis Slight; Segmented Neutrophils 78 % (50-85); Total Cells Counted 100
[2019-09-27 06:32] LABS: Polychromasia Slight; Target Cells Few
[2019-09-27] MEDS: NYSTATIN POWDER 15 GM BOTTLE TOP SCH ×2 (08:20→21:50)
[2019-09-27] MEDS: LOPERAMIDE 1 MG/7.5 ML 30 ML BOTTLE PO SCH (08:20)
[2019-09-27] MEDS: ELVITEG COB EMTRI TENOF ALAFEN PO SCH (08:20)
[2019-09-27] MEDS: SULFAMETHOX/TRIMETHOPRIM 800-160 MG TABLET PO SCH (08:20)
[2019-09-27] MEDS: PANTOPRAZOLE 40 MG VIAL IV SCH (08:21)
[2019-09-27] MEDS ORDERED: VANCOMYCIN INJ 1,500 MG in SODIUM CHLORIDE 0.9% 500 ML IV PRN (08:35)
[2019-09-27] MEDS: MEROPENEM 500 MG in SODIUM CHLORIDE 0.9% 100 ML IV SCH ×2 (08:45→21:52)
[2019-09-27] MEDS: FLUCONAZOLE INJ 100 MG in IV BAG 1 EACH IV SCH (09:14)
[2019-09-27] MEDS ORDERED: VANCOMYCIN INJ 1,500 MG in SODIUM CHLORIDE 0.9% 500 ML IV ONE (10:00)
[2019-09-27 14:27] LABS: Apearance,Urine CLEAR (Clear); Bacteria,Urine Occasional /HPF (Few); Bilirubin,Urine Negative (Negative); Blood, Urine Small mg/dL (Negative); Glucose,Urine (UA) Negative (Negative); Hyaline Casts,Urine 4 /LPF (0-3); Ketones,Urine Negative (Negative); Mucus,Urine Occasional /LPF (Occasional); Nitrite,Urine Negative (Negative); Protein,Urine Negative; RBC,Urine 4 /HPF (0-4); Squamous Epithelial Cell,Urine Occasional /HPF (0-10); Urine Color Yellow (Yellow); Urine Urobilinogen < 2.0 EU/DL (0.2-1.0); WBC,Urine 5 /HPF (0-6)
[2019-09-28] MEDS: INSULIN REGULAR 100 UNIT/ML SUBCUT SCH ×4 (00:38→18:05)
[2019-09-28] MEDS: ALBUTEROL/IPRATROPIUM 3 ML NEB RESP TX SCH ×4 (01:11→19:59)
[2019-09-28 03:52] LABS: ABG Base Excess 0.4 MMOL/L (-2.5-2.5); ABG HCO3 24.8 MMOL/L (20-26); ABG Oxygen Saturation 97.4 % (95-100); ABG PCO2 42.1 MM HG (35-48); ABG PO2 90.1 MM HG (80-95); ABG TCO2 23.3 MMOL/L (23-27); Allen Test Positive
[2019-09-28 04:40] LABS: Basophils # 0.1 10*3/uL (0.0-0.2); Basophils % 0.3 % (0.0-0.8); Eosinophils # 0.2 10*3/uL (0.0-0.87); Eosinophils % 0.9 % (0.00-10.9); Hematocrit 22.9 VOL% (35.7-47.0); Hemoglobin 7.2 GM/DL (12.0-16.0); Immature Granulocytes % 4.6 %; Immature Granulocytes Absolute 0.95 #; Lymphocytes # 1.4 10*3/uL (1.4-4.0); Lymphocytes % 6.8 % (21.3-54.2); Mean Corpuscular HGB Conc 31.4 GM/DL (32-36); Mean Corpuscular Volume 90.2 FL (87-102); Mean Platelet Volume 10.4 FL (9.6-12.0); Monocytes % 7.7 % (1.7-12.7); Neutrophils % 79.7 % (38.7-73.9); Platelet Count 384 T/CUMM (130-400); Red Blood Count 2.54 MC/CUMM (3.8-5.5); Red Cell Distribution Width 17.1 % (9.3-17.3); White Blood Count 20.7 T/CUMM (4-12)
[2019-09-28 05:00] LABS: Calcium 8.4 MG/DL (8.5-10.1); Osmolality,Calculated 289.5 MOS/KG (273-304)
[2019-09-28 06:41] LABS: Anisocytosis Slight; Band Neutrophils 2 % (0-10); Eosinophils 1 % (0-10); Lymphocytes 5 % (20-55); Metamyelocytes 1 %; Platelet Estimate Normal; Segmented Neutrophils 84 % (50-85); Total Cells Counted 100
[2019-09-28 06:42] LABS: Hypochromasia 1+; Polychromasia Slight; Target Cells Slight
[2019-09-28 06:43] LABS: Microcytosis 1+
[2019-09-28] MEDS: NYSTATIN POWDER 15 GM BOTTLE TOP SCH ×2 (09:27→23:03)
[2019-09-28] MEDS: SULFAMETHOX/TRIMETHOPRIM 800-160 MG TABLET PO SCH (09:27)
[2019-09-28] MEDS: MEROPENEM 500 MG in SODIUM CHLORIDE 0.9% 100 ML IV SCH ×2 (09:27→22:48)
[2019-09-28] MEDS: ELVITEG COB EMTRI TENOF ALAFEN PO SCH (09:27)
[2019-09-28] MEDS: PANTOPRAZOLE 40 MG VIAL IV SCH (09:28)
[2019-09-28] MEDS ORDERED: VANCOMYCIN INJ 1,500 MG in SODIUM CHLORIDE 0.9% 500 ML IV ONE (12:00)
[2019-09-29] MEDS: INSULIN REGULAR 100 UNIT/ML SUBCUT SCH ×4 (01:02→17:21)
[2019-09-29] MEDS: ALBUTEROL/IPRATROPIUM 3 ML NEB RESP TX SCH ×4 (02:20→19:15)
[2019-09-29 04:03] LABS: Basophils # 0.1 10*3/uL (0.0-0.2); Basophils % 0.3 % (0.0-0.8); Eosinophils # 0.2 10*3/uL (0.0-0.87); Eosinophils % 1.1 % (0.00-10.9); Hematocrit 23.2 VOL% (35.7-47.0); Immature Granulocytes % 4.1 %; Immature Granulocytes Absolute 0.71 #; Lymphocytes # 1.2 10*3/uL (1.4-4.0); Lymphocytes % 6.6 % (21.3-54.2); Mean Corpuscular HGB Conc 30.2 GM/DL (32-36); Mean Corpuscular Volume 91.7 FL (87-102); Mean Platelet Volume 10.2 FL (9.6-12.0); Monocytes % 8.6 % (1.7-12.7); Neutrophils % 79.3 % (38.7-73.9); Platelet Count 453 T/CUMM (130-400); Red Blood Count 2.53 MC/CUMM (3.8-5.5); Red Cell Distribution Width 16.9 % (9.3-17.3); White Blood Count 17.5 T/CUMM (4-12)
[2019-09-29 04:26] LABS: Calcium 8.1 MG/DL (8.5-10.1)
[2019-09-29 05:10] LABS: Band Neutrophils 2 % (0-10); Eosinophils 1 % (0-10); Lymphocytes 4 % (20-55); Segmented Neutrophils 83 % (50-85); Total Cells Counted 100
[2019-09-29 05:11] LABS: Anisocytosis 1+; Hypochromasia 1+; Platelet Estimate Normal; Target Cells 1+
[2019-09-29] MEDS: MEROPENEM 500 MG in SODIUM CHLORIDE 0.9% 100 ML IV SCH (09:04)
[2019-09-29] MEDS: SULFAMETHOX/TRIMETHOPRIM 800-160 MG TABLET PO SCH (09:04)
[2019-09-29] MEDS: ELVITEG COB EMTRI TENOF ALAFEN PO SCH (09:04)
[2019-09-29] MEDS: NYSTATIN POWDER 15 GM BOTTLE TOP SCH (09:05)
[2019-09-29] MEDS: PANTOPRAZOLE 40 MG VIAL IV SCH (09:05)
[2019-09-29] MEDS: MAGNESIUM SULF RIDER 4 GM in PREMIX 1 EACH IV PRN (09:05)
[2019-09-29] MEDS: METOPROLOL TARTRATE 25 MG TABLET PO SCH (09:40)
[2019-09-30] MEDS: NYSTATIN POWDER 15 GM BOTTLE TOP SCH ×3 (00:08→21:22)
[2019-09-30] MEDS: MEROPENEM 500 MG in SODIUM CHLORIDE 0.9% 100 ML IV SCH ×3 (00:08→21:00)
[2019-09-30] MEDS: METOPROLOL TARTRATE 25 MG TABLET PO SCH ×3 (00:08→21:21)
[2019-09-30] MEDS: ALBUTEROL/IPRATROPIUM 3 ML NEB RESP TX SCH ×4 (01:19→19:25)
[2019-09-30] MEDS: INSULIN REGULAR 100 UNIT/ML SUBCUT SCH ×4 (01:56→17:07)
[2019-09-30 06:25] LABS: Basophils # 0.1 10*3/uL (0.0-0.2); Basophils % 0.3 % (0.0-0.8); Eosinophils # 0.2 10*3/uL (0.0-0.87); Eosinophils % 1.1 % (0.00-10.9); Hematocrit 24.7 VOL% (35.7-47.0); Hemoglobin 7.5 GM/DL (12.0-16.0); Immature Granulocytes Absolute 0.56 #; Lymphocytes # 1.3 10*3/uL (1.4-4.0); Lymphocytes % 7.1 % (21.3-54.2); Mean Corpuscular HGB Conc 30.4 GM/DL (32-36); Mean Corpuscular Volume 92.9 FL (87-102); Mean Platelet Volume 10.1 FL (9.6-12.0); Monocytes % 8.6 % (1.7-12.7); Neutrophils % 79.9 % (38.7-73.9); Platelet Count 598 T/CUMM (130-400); Red Blood Count 2.66 MC/CUMM (3.8-5.5); Red Cell Distribution Width 16.6 % (9.3-17.3); White Blood Count 18.5 T/CUMM (4-12)
[2019-09-30 06:38] LABS: Calcium 8.7 MG/DL (8.5-10.1); Osmolality,Calculated 285.5 MOS/KG (273-304)
[2019-09-30 08:28] LABS: Anisocytosis 3+; Band Neutrophils 2 % (0-10); Eosinophils 3 % (0-10); Hypochromasia 1+; Lymphocytes 5 % (20-55); Metamyelocytes 2 %; Platelet Estimate Increased; Polychromasia Slight; Segmented Neutrophils 79 % (50-85); Target Cells Few; Total Cells Counted 100
[2019-09-30 08:29] LABS: Poikilocytosis Slight
[2019-09-30] MEDS: SULFAMETHOX/TRIMETHOPRIM 800-160 MG TABLET PO SCH (09:05)
[2019-09-30] MEDS: ELVITEG COB EMTRI TENOF ALAFEN PO SCH (09:05)
[2019-09-30] MEDS: PANTOPRAZOLE 40 MG VIAL IV SCH (09:06)
[2019-09-30] MEDS ORDERED: VANCOMYCIN INJ 1,500 MG in SODIUM CHLORIDE 0.9% 500 ML IV ONE (12:00)
[2019-10-01] MEDS: ALBUTEROL/IPRATROPIUM 3 ML NEB RESP TX SCH ×4 (00:45→19:20)
[2019-10-01] MEDS: INSULIN REGULAR 100 UNIT/ML SUBCUT SCH ×4 (02:19→17:13)
[2019-10-01 04:04] LABS: Basophils # 0.1 10*3/uL (0.0-0.2); Basophils % 0.3 % (0.0-0.8); Eosinophils # 0.2 10*3/uL (0.0-0.87); Eosinophils % 1.3 % (0.00-10.9); Hematocrit 21.8 VOL% (35.7-47.0); Hemoglobin 6.9 GM/DL (12.0-16.0); Immature Granulocytes % 1.7 %; Immature Granulocytes Absolute 0.31 #; Lymphocytes # 1.3 10*3/uL (1.4-4.0); Lymphocytes % 6.9 % (21.3-54.2); Mean Corpuscular HGB Conc 31.7 GM/DL (32-36); Mean Corpuscular Volume 90.5 FL (87-102); Mean Platelet Volume 10.6 FL (9.6-12.0); Monocytes % 6.9 % (1.7-12.7); Neutrophils % 82.9 % (38.7-73.9); Platelet Count 542 T/CUMM (130-400); Red Blood Count 2.41 MC/CUMM (3.8-5.5); Red Cell Distribution Width 16.4 % (9.3-17.3); White Blood Count 18.2 T/CUMM (4-12)
[2019-10-01 04:23] LABS: Calcium 8.4 MG/DL (8.5-10.1); Osmolality,Calculated 283.5 MOS/KG (273-304)
[2019-10-01] MEDS: PANTOPRAZOLE 40 MG VIAL IV SCH (08:38)
[2019-10-01] MEDS: MAGNESIUM SULF RIDER 2 GM in PREMIX 1 EACH IV PRN (08:38)
[2019-10-01] MEDS: METOPROLOL TARTRATE 25 MG TABLET PO SCH ×2 (08:44→21:39)
[2019-10-01] MEDS: ELVITEG COB EMTRI TENOF ALAFEN PO SCH (08:44)
[2019-10-01] MEDS: SULFAMETHOX/TRIMETHOPRIM 800-160 MG TABLET PO SCH (08:44)
[2019-10-01] MEDS: NYSTATIN POWDER 15 GM BOTTLE TOP SCH ×2 (08:44→21:39)
[2019-10-01] MEDS ORDERED: MAGNESIUM SULF RIDER 2 GM in PREMIX 1 EACH IV ONE (09:39)
[2019-10-01] MEDS: MEROPENEM 500 MG in SODIUM CHLORIDE 0.9% 100 ML IV SCH ×3 (09:49→17:13)
[2019-10-01] MEDS: VANCOMYCIN INJ 1,500 MG in SODIUM CHLORIDE 0.9% 500 ML IV SCH (11:30)
[2019-10-02] MEDS: INSULIN REGULAR 100 UNIT/ML SUBCUT SCH ×5 (00:24→23:03)
[2019-10-02] MEDS: ALBUTEROL/IPRATROPIUM 3 ML NEB RESP TX SCH ×4 (01:19→19:45)
[2019-10-02] MEDS: MEROPENEM 500 MG in SODIUM CHLORIDE 0.9% 100 ML IV SCH ×3 (02:51→18:00)
[2019-10-02 03:18] LABS: Basophils # 0.1 10*3/uL (0.0-0.2); Basophils % 0.4 % (0.0-0.8); Eosinophils # 0.3 10*3/uL (0.0-0.87); Eosinophils % 1.4 % (0.00-10.9); Hematocrit 23.9 VOL% (35.7-47.0); Hemoglobin 7.5 GM/DL (12.0-16.0); Immature Granulocytes % 1.6 %; Immature Granulocytes Absolute 0.28 #; Lymphocytes # 1.3 10*3/uL (1.4-4.0); Lymphocytes % 7.4 % (21.3-54.2); Mean Corpuscular HGB Conc 31.4 GM/DL (32-36); Mean Corpuscular Volume 90.9 FL (87-102); Mean Platelet Volume 10.5 FL (9.6-12.0); Monocytes % 7.2 % (1.7-12.7); Platelet Count 559 T/CUMM (130-400); Red Blood Count 2.63 MC/CUMM (3.8-5.5)
[2019-10-02 03:28] LABS: Calcium 8.5 MG/DL (8.5-10.1); Osmolality,Calculated 285.4 MOS/KG (273-304)
[2019-10-02 03:32] LABS: Calcium 8.4 MG/DL (8.5-10.1); Osmolality,Calculated 283.5 MOS/KG (273-304)
[2019-10-02] MEDS: VANCOMYCIN INJ 1,500 MG in SODIUM CHLORIDE 0.9% 500 ML IV SCH ×2 (04:22→22:47)
[2019-10-02] MEDS: MAGNESIUM SULF RIDER 2 GM in PREMIX 1 EACH IV PRN (07:01)
[2019-10-02] MEDS: METOPROLOL TARTRATE 25 MG TABLET PO SCH ×2 (09:20→21:48)
[2019-10-02] MEDS: PANTOPRAZOLE 40 MG VIAL IV SCH (09:20)
[2019-10-02] MEDS: INSULIN GLARGINE 100 UNIT/ML SUBCUT SCH (09:22)
[2019-10-02] MEDS: ELVITEG COB EMTRI TENOF ALAFEN PO SCH (09:24)
[2019-10-02] MEDS: NYSTATIN POWDER 15 GM BOTTLE TOP SCH ×2 (09:25→21:48)
[2019-10-03] MEDS: MEROPENEM 500 MG in SODIUM CHLORIDE 0.9% 100 ML IV SCH ×3 (01:18→18:57)
[2019-10-03] MEDS: ALBUTEROL/IPRATROPIUM 3 ML NEB RESP TX SCH ×4 (01:22→19:15)
[2019-10-03 03:10] LABS: Basophils # 0.1 10*3/uL (0.0-0.2); Basophils % 0.5 % (0.0-0.8); Eosinophils # 0.3 10*3/uL (0.0-0.87); Eosinophils % 1.3 % (0.00-10.9); Hematocrit 23.6 VOL% (35.7-47.0); Immature Granulocytes % 1.9 %; Immature Granulocytes Absolute 0.36 #; Lymphocytes # 1.8 10*3/uL (1.4-4.0); Lymphocytes % 9.3 % (21.3-54.2); Mean Corpuscular HGB Conc 29.7 GM/DL (32-36); Mean Corpuscular Volume 92.9 FL (87-102); Mean Platelet Volume 10.5 FL (9.6-12.0); Monocytes % 8.1 % (1.7-12.7); Neutrophils % 78.9 % (38.7-73.9); Platelet Count 565 T/CUMM (130-400); Red Blood Count 2.54 MC/CUMM (3.8-5.5); White Blood Count 19.3 T/CUMM (4-12)
[2019-10-03 03:29] LABS: Calcium 8.2 MG/DL (8.5-10.1); Osmolality,Calculated 282.7 MOS/KG (273-304)
[2019-10-03] MEDS: INSULIN REGULAR 100 UNIT/ML SUBCUT SCH ×3 (06:00→18:38)
[2019-10-03] MEDS ORDERED: SODIUM CHLORIDE 0.9% 1,000 ML IV PRN (08:21)
[2019-10-03] MEDS ORDERED: diphenhydrAMINE 50 MG/1 ML VIAL IV ONE (08:21)
[2019-10-03] MEDS ORDERED: ACETAMINOPHEN 325 MG TABLET PO ONE (08:22)
[2019-10-03] MEDS: PANTOPRAZOLE 40 MG VIAL IV SCH (10:28)
[2019-10-03] MEDS: INSULIN GLARGINE 100 UNIT/ML SUBCUT SCH (10:29)
[2019-10-03] MEDS: NYSTATIN POWDER 15 GM BOTTLE TOP SCH ×2 (10:29→20:17)
[2019-10-03] MEDS: METOPROLOL TARTRATE 25 MG TABLET PO SCH ×2 (10:30→20:16)
[2019-10-03] MEDS: DESITIN 4OZ/NYSTATIN 15 GRAM MIXTURE PASTE TOP SCH ×2 (10:30→20:16)
[2019-10-03] MEDS ORDERED: FUROSEMIDE 40 MG/4 ML VIAL IV ONE (10:30)
[2019-10-03] MEDS ORDERED: TUBERCULIN SKIN TEST 0.1 ML SYRINGE INTRADERM ONE (10:43)
[2019-10-03] MEDS: ELVITEG COB EMTRI TENOF ALAFEN PO SCH (12:32)
[2019-10-03 13:03] LABS: Apearance,Urine CLEAR (Clear); Bacteria,Urine Occasional /HPF (Few); Bilirubin,Urine Negative (Negative); Blood, Urine Moderate mg/dL (Negative); Glucose,Urine (UA) >=500 mg/dL (Negative); Hyaline Casts,Urine 4 /LPF (0-3); Ketones,Urine Negative (Negative); Mucus,Urine Occasional /LPF (Occasional); Nitrite,Urine Negative (Negative); Protein,Urine 30 MG/DL; RBC,Urine 50 /HPF (0-4); Squamous Epithelial Cell,Urine Occasional /HPF (0-10); Urine Color Yellow (Yellow); Urine Urobilinogen < 2.0 EU/DL (0.2-1.0); WBC,Urine 12 /HPF (0-6)
[2019-10-03] MEDS: FLUCONAZOLE INJ 200 MG in PREMIX 1 EACH IV SCH (14:15)
[2019-10-03] MEDS: SULFAMETHOX/TRIMETHOPRIM 200-40 MG/5 ML -20 ML UDCUP PER TUBE SCH (14:16)
[2019-10-03] MEDS: buPROPion 75 MG TABLET PO SCH (20:16)
[2019-10-04] MEDS: INSULIN REGULAR 100 UNIT/ML SUBCUT SCH ×4 (00:11→18:48)
[2019-10-04] MEDS: ALBUTEROL/IPRATROPIUM 3 ML NEB RESP TX SCH ×4 (00:28→20:05)
[2019-10-04] MEDS: MEROPENEM 500 MG in SODIUM CHLORIDE 0.9% 100 ML IV SCH ×3 (01:47→17:28)
[2019-10-04 06:42] LABS: Basophils # 0.1 10*3/uL (0.0-0.2); Basophils % 0.6 % (0.0-0.8); Eosinophils # 0.2 10*3/uL (0.0-0.87); Eosinophils % 1.2 % (0.00-10.9); Hematocrit 28.5 VOL% (35.7-47.0); Immature Granulocytes % 2.4 %; Immature Granulocytes Absolute 0.41 #; Lymphocytes # 1.6 10*3/uL (1.4-4.0); Lymphocytes % 9.3 % (21.3-54.2); Mean Corpuscular HGB Conc 31.9 GM/DL (32-36); Mean Corpuscular Volume 90.8 FL (87-102); Mean Platelet Volume 10.7 FL (9.6-12.0); Neutrophils % 77.5 % (38.7-73.9); Platelet Count 495 T/CUMM (130-400); Red Cell Distribution Width 15.6 % (9.3-17.3); White Blood Count 17.4 T/CUMM (4-12)
[2019-10-04 07:01] LABS: Calcium 8.4 MG/DL (8.5-10.1); Osmolality,Calculated 269.2 MOS/KG (273-304)
[2019-10-04 07:04] LABS: Hemoglobin 9.1 GM/DL (12.0-16.0); Red Blood Count 3.14 MC/CUMM (3.8-5.5)
[2019-10-04 07:07] LABS: Albumin 1.7 G/DL (3.4-5.0); Bilirubin,Total 0.5 MG/DL (0.2-1.0); Calcium 8.3 MG/DL (8.5-10.1); Calcium 8.6 MG/DL (8.5-10.1); Total Protein 7.9 G/DL (6.4-8.3)
[2019-10-04] MEDS: PANTOPRAZOLE 40 MG VIAL IV SCH (09:05)
[2019-10-04] MEDS: buPROPion 75 MG TABLET PO SCH ×2 (09:05→20:30)
[2019-10-04] MEDS: METOPROLOL TARTRATE 25 MG TABLET PO SCH ×2 (09:05→20:30)
[2019-10-04] MEDS: INSULIN GLARGINE 100 UNIT/ML SUBCUT SCH (09:05)
[2019-10-04] MEDS: DESITIN 4OZ/NYSTATIN 15 GRAM MIXTURE PASTE TOP SCH ×2 (09:06→20:31)
[2019-10-04] MEDS: NYSTATIN POWDER 15 GM BOTTLE TOP SCH ×2 (09:11→20:30)
[2019-10-04] MEDS: SULFAMETHOX/TRIMETHOPRIM 200-40 MG/5 ML -20 ML UDCUP PER TUBE SCH (09:12)
[2019-10-04] MEDS: MAGNESIUM SULF RIDER 2 GM in PREMIX 1 EACH IV PRN (10:05)
[2019-10-04] MEDS: FLUCONAZOLE INJ 200 MG in PREMIX 1 EACH IV SCH (14:36)
[2019-10-05] MEDS: INSULIN REGULAR 100 UNIT/ML SUBCUT SCH ×5 (00:29→22:50)
[2019-10-05] MEDS: MEROPENEM 500 MG in SODIUM CHLORIDE 0.9% 100 ML IV SCH ×3 (01:27→17:35)
[2019-10-05] MEDS: ALBUTEROL/IPRATROPIUM 3 ML NEB RESP TX SCH ×4 (02:14→19:41)
[2019-10-05 05:55] LABS: Basophils # 0.1 10*3/uL (0.0-0.2); Basophils % 0.6 % (0.0-0.8); Eosinophils # 0.3 10*3/uL (0.0-0.87); Eosinophils % 1.6 % (0.00-10.9); Hematocrit 28.2 VOL% (35.7-47.0); Hemoglobin 9.1 GM/DL (12.0-16.0); Immature Granulocytes % 3.5 %; Lymphocytes # 1.5 10*3/uL (1.4-4.0); Lymphocytes % 8.5 % (21.3-54.2); Mean Corpuscular HGB Conc 32.3 GM/DL (32-36); Mean Corpuscular Volume 89.2 FL (87-102); Mean Platelet Volume 11.4 FL (9.6-12.0); Monocytes % 10.4 % (1.7-12.7); Neutrophils % 75.4 % (38.7-73.9); Platelet Count 426 T/CUMM (130-400); Red Blood Count 3.16 MC/CUMM (3.8-5.5); Red Cell Distribution Width 15.2 % (9.3-17.3); White Blood Count 17.2 T/CUMM (4-12)
[2019-10-05 06:14] LABS: Albumin 1.7 G/DL (3.4-5.0); Bilirubin,Total 1.5 MG/DL (0.2-1.0); Calcium 8.4 MG/DL (8.5-10.1); Osmolality,Calculated 263.4 MOS/KG (273-304); Total Protein 7.4 G/DL (6.4-8.3)
[2019-10-05 06:40] LABS: Eosinophils 1 % (0-10); Hypochromasia 1+; Lymphocytes 8 % (20-55); Microcytosis Slight; Platelet Estimate Adequate; Segmented Neutrophils 86 % (50-85); Total Cells Counted 100
[2019-10-05 10:18] LABS: Appearance,CSF Clear; Lymphocytes,CSF 96 %; Neutrophils,CSF 4 %; Red Blood Cell,CSF < 1 C/CUMM; White Blood Cell,CSF 12 C/CUMM
[2019-10-05 10:29] LABS: Glucose,CSF 46 MG/DL (40-70)
[2019-10-05] MEDS: PANTOPRAZOLE 40 MG VIAL IV SCH (10:49)
[2019-10-05] MEDS: SULFAMETHOX/TRIMETHOPRIM 200-40 MG/5 ML -20 ML UDCUP PER TUBE SCH (10:49)
[2019-10-05] MEDS: buPROPion 75 MG TABLET PO SCH ×2 (10:49→20:29)
[2019-10-05] MEDS: METOPROLOL TARTRATE 25 MG TABLET PO SCH ×2 (10:49→20:29)
[2019-10-05] MEDS: NYSTATIN POWDER 15 GM BOTTLE TOP SCH ×2 (10:49→20:32)
[2019-10-05] MEDS: INSULIN GLARGINE 100 UNIT/ML SUBCUT SCH (10:50)
[2019-10-05] MEDS: ACYCLOVIR INJ 500 MG in SODIUM CHLORIDE 0.9% 100 ML IV SCH ×2 (10:58→16:56)
[2019-10-05] MEDS: SKIN HEALING OINT (AQUAPHOR) 50 GM TUBE TOP SCH ×2 (10:58→20:32)
[2019-10-05] MEDS: DESITIN 4OZ/NYSTATIN 15 GRAM MIXTURE PASTE TOP SCH ×2 (10:58→20:32)
[2019-10-05] MEDS: FLUCONAZOLE INJ 200 MG in PREMIX 1 EACH IV SCH (13:21)
[2019-10-05] MEDS: CYCLOBENZAPRINE 10 MG TABLET PO PRN (20:34)
[2019-10-05 20:56] LABS: QuantiFERON-Tb Gold Pl Indeterminate (Negative); TB2 Ag Minus Result 0.01 IU/mL
[2019-10-06] MEDS: ALBUTEROL/IPRATROPIUM 3 ML NEB RESP TX SCH ×4 (00:38→20:18)
[2019-10-06] MEDS: ACYCLOVIR INJ 500 MG in SODIUM CHLORIDE 0.9% 100 ML IV SCH ×3 (01:00→16:33)
[2019-10-06] MEDS: MEROPENEM 500 MG in SODIUM CHLORIDE 0.9% 100 ML IV SCH ×3 (02:05→17:43)
[2019-10-06 05:42] LABS: Basophils # 0.1 10*3/uL (0.0-0.2); Basophils % 0.7 % (0.0-0.8); Eosinophils # 0.3 10*3/uL (0.0-0.87); Eosinophils % 1.6 % (0.00-10.9); Hematocrit 28.7 VOL% (35.7-47.0); Hemoglobin 9.2 GM/DL (12.0-16.0); Immature Granulocytes % 4.7 %; Immature Granulocytes Absolute 0.76 #; Lymphocytes # 1.4 10*3/uL (1.4-4.0); Lymphocytes % 8.3 % (21.3-54.2); Mean Corpuscular HGB Conc 32.1 GM/DL (32-36); Mean Corpuscular Volume 89.1 FL (87-102); Mean Platelet Volume 10.5 FL (9.6-12.0); Monocytes % 10.1 % (1.7-12.7); Neutrophils % 74.6 % (38.7-73.9); Platelet Count 461 T/CUMM (130-400); Red Blood Count 3.22 MC/CUMM (3.8-5.5); Red Cell Distribution Width 14.7 % (9.3-17.3); White Blood Count 16.3 T/CUMM (4-12)
[2019-10-06 06:13] LABS: Albumin 1.7 G/DL (3.4-5.0); Bilirubin,Total 0.6 MG/DL (0.2-1.0); Calcium 8.4 MG/DL (8.5-10.1); Osmolality,Calculated 262.5 MOS/KG (273-304); Total Protein 7.6 G/DL (6.4-8.3)
[2019-10-06] MEDS: INSULIN REGULAR 100 UNIT/ML SUBCUT SCH ×4 (06:29→23:57)
[2019-10-06 06:45] LABS: Eosinophils 2 % (0-10); Hypochromasia 1+; Lymphocytes 7 % (20-55); Microcytosis Slight; Myelocytes 1 %; Platelet Estimate Increased; Segmented Neutrophils 83 % (50-85); Total Cells Counted 100
[2019-10-06] MEDS: INSULIN GLARGINE 100 UNIT/ML SUBCUT SCH (10:05)
[2019-10-06] MEDS: NYSTATIN POWDER 15 GM BOTTLE TOP SCH ×2 (10:06→20:29)
[2019-10-06] MEDS: PANTOPRAZOLE 40 MG VIAL IV SCH (10:06)
[2019-10-06] MEDS: buPROPion 75 MG TABLET PO SCH ×2 (10:06→20:29)
[2019-10-06] MEDS: SULFAMETHOX/TRIMETHOPRIM 200-40 MG/5 ML -20 ML UDCUP PO SCH (10:06)
[2019-10-06] MEDS: DESITIN 4OZ/NYSTATIN 15 GRAM MIXTURE PASTE TOP SCH ×2 (10:06→20:29)
[2019-10-06] MEDS: SKIN HEALING OINT (AQUAPHOR) 50 GM TUBE TOP SCH ×2 (10:06→20:28)
[2019-10-06] MEDS: METOPROLOL TARTRATE 25 MG TABLET PO SCH ×2 (10:06→20:29)
[2019-10-06 11:01] LABS: CMV PCR Source URINE
[2019-10-06] MEDS: FLUCONAZOLE INJ 200 MG in PREMIX 1 EACH IV SCH (13:05)
[2019-10-06 13:46] LABS: VDRL Spinal Fluid Negative (Negative)
[2019-10-06] MEDS: CYCLOBENZAPRINE 10 MG TABLET PO PRN (15:22)
[2019-10-06] MEDS ORDERED: HALOPERIDOL 1 MG TABLET PO ONE (16:09)
[2019-10-06] MEDS ORDERED: ZIPRASIDONE 20 MG/1 ML VIAL IM ONE (16:16)
[2019-10-06] MEDS: QUEtiapine 25 MG TABLET PO SCH (20:29)
[2019-10-06] MEDS: HALOPERIDOL 1 MG TABLET PO SCH (20:29)
[2019-10-07] MEDS: ACYCLOVIR INJ 500 MG in SODIUM CHLORIDE 0.9% 100 ML IV SCH ×3 (02:00→18:55)
[2019-10-07] MEDS: ALBUTEROL/IPRATROPIUM 3 ML NEB RESP TX SCH ×4 (02:38→20:32)
[2019-10-07] MEDS: MEROPENEM 500 MG in SODIUM CHLORIDE 0.9% 100 ML IV SCH ×3 (03:23→17:25)
[2019-10-07] MEDS: INSULIN REGULAR 100 UNIT/ML SUBCUT SCH ×4 (05:54→23:47)
[2019-10-07 06:32] LABS: Basophils # 0.1 10*3/uL (0.0-0.2); Basophils % 0.7 % (0.0-0.8); Eosinophils # 0.3 10*3/uL (0.0-0.87); Eosinophils % 1.6 % (0.00-10.9); Hematocrit 32.5 VOL% (35.7-47.0); Immature Granulocytes % 5.6 %; Immature Granulocytes Absolute 0.92 #; Lymphocytes # 1.6 10*3/uL (1.4-4.0); Lymphocytes % 9.9 % (21.3-54.2); Mean Corpuscular HGB Conc 30.8 GM/DL (32-36); Mean Corpuscular Volume 93.4 FL (87-102); Mean Platelet Volume 11.4 FL (9.6-12.0); Monocytes % 10.1 % (1.7-12.7); Neutrophils % 72.1 % (38.7-73.9); Platelet Count 455 T/CUMM (130-400); Red Blood Count 3.48 MC/CUMM (3.8-5.5); White Blood Count 16.4 T/CUMM (4-12)
[2019-10-07 06:42] LABS: Alanine Aminotransferase < 9 U/L (13-56); Albumin 1.8 G/DL (3.4-5.0); Alkaline Phosphatase 65 U/L (45-117); Aspartate Amino Transferase 17 U/L (0-37); Blood Urea Nitrogen 9 MG/DL (7-18); Calcium 8.3 MG/DL (8.5-10.1); Estimated Glom Filtration Rate 59 ML/MIN; Glucose 101 MG/DL (74-106); Osmolality,Calculated 264.4 MOS/KG (273-304); Total Protein 7.9 G/DL (6.4-8.3)
[2019-10-07 09:07] LABS: Anisocytosis 1+; Band Neutrophils 2 % (0-10); Eosinophils 1 % (0-10); Hypochromasia 2+; Lymphocytes 11 % (20-55); Macrocytosis 1+; Nucleated Red Blood Cells 2 (0-5); Ovalocytes 1+; Platelet Estimate Increased; Polychromasia Few; Segmented Neutrophils 72 % (50-85); Target Cells 1+; Total Cells Counted 100
[2019-10-07] MEDS: PANTOPRAZOLE 40 MG VIAL IV SCH (09:14)
[2019-10-07] MEDS: SKIN HEALING OINT (AQUAPHOR) 50 GM TUBE TOP SCH ×2 (09:14→20:07)
[2019-10-07] MEDS: LACTOBACILLUS RHAMNOSUS GG CAPSULE PO SCH ×2 (09:15→20:07)
[2019-10-07] MEDS: buPROPion 75 MG TABLET PO SCH ×2 (09:15→20:07)
[2019-10-07] MEDS: QUEtiapine 25 MG TABLET PO SCH ×2 (09:15→20:07)
[2019-10-07] MEDS: DESITIN 4OZ/NYSTATIN 15 GRAM MIXTURE PASTE TOP SCH ×2 (09:15→20:07)
[2019-10-07] MEDS: NYSTATIN POWDER 15 GM BOTTLE TOP SCH ×2 (09:15→20:07)
[2019-10-07] MEDS: METOPROLOL TARTRATE 25 MG TABLET PO SCH ×2 (09:15→20:07)
[2019-10-07] MEDS: SULFAMETHOX/TRIMETHOPRIM 200-40 MG/5 ML -20 ML UDCUP PO SCH (09:16)
[2019-10-07] MEDS: INSULIN GLARGINE 100 UNIT/ML SUBCUT SCH (09:16)
[2019-10-07] MEDS: FLUCONAZOLE INJ 200 MG in PREMIX 1 EACH IV SCH (11:09)
[2019-10-07] MEDS: CYCLOBENZAPRINE 10 MG TABLET PO PRN ×2 (12:43→20:07)
[2019-10-07] MEDS: HALOPERIDOL 1 MG TABLET PO SCH (20:08)
[2019-10-08] MEDS: ALBUTEROL/IPRATROPIUM 3 ML NEB RESP TX SCH ×4 (00:24→19:23)
[2019-10-08] MEDS: ACYCLOVIR INJ 500 MG in SODIUM CHLORIDE 0.9% 100 ML IV SCH ×2 (01:00→12:09)
[2019-10-08] MEDS: MEROPENEM 500 MG in SODIUM CHLORIDE 0.9% 100 ML IV SCH ×3 (02:04→18:41)
[2019-10-08] MEDS: INSULIN REGULAR 100 UNIT/ML SUBCUT SCH ×3 (05:18→18:38)
[2019-10-08 06:10] LABS: Basophils # 0.1 10*3/uL (0.0-0.2); Basophils % 0.6 % (0.0-0.8); Eosinophils # 0.3 10*3/uL (0.0-0.87); Eosinophils % 1.9 % (0.00-10.9); Hematocrit 29.2 VOL% (35.7-47.0); Immature Granulocytes % 6.7 %; Immature Granulocytes Absolute 1.15 #; Lymphocytes # 1.9 10*3/uL (1.4-4.0); Mean Corpuscular HGB Conc 30.8 GM/DL (32-36); Mean Corpuscular Volume 92.1 FL (87-102); Mean Platelet Volume 11.1 FL (9.6-12.0); Monocytes % 9.8 % (1.7-12.7); Platelet Count 421 T/CUMM (130-400); Red Blood Count 3.17 MC/CUMM (3.8-5.5); Red Cell Distribution Width 15.1 % (9.3-17.3); White Blood Count 17.2 T/CUMM (4-12)
[2019-10-08 06:38] LABS: Albumin 1.7 G/DL (3.4-5.0); Bilirubin,Total 1.2 MG/DL (0.2-1.0); Calcium 8.2 MG/DL (8.5-10.1); Osmolality,Calculated 259.7 MOS/KG (273-304); Total Protein 7.7 G/DL (6.4-8.3)
[2019-10-08 06:40] LABS: Band Neutrophils 1 % (0-10); Eosinophils 2 % (0-10); Hypochromasia 1+; Lymphocytes 13 % (20-55); Microcytosis Slight; Segmented Neutrophils 73 % (50-85); Total Cells Counted 100
[2019-10-08 06:41] LABS: Platelet Estimate Increased; Target Cells Slight
[2019-10-08] MEDS: INSULIN GLARGINE 100 UNIT/ML SUBCUT SCH (12:07)
[2019-10-08] MEDS: FLUCONAZOLE INJ 200 MG in PREMIX 1 EACH IV SCH (12:09)
[2019-10-08] MEDS: PANTOPRAZOLE 40 MG VIAL IV SCH (12:10)
[2019-10-08] MEDS: QUEtiapine 25 MG TABLET PO SCH ×2 (12:11→22:04)
[2019-10-08] MEDS: LACTOBACILLUS RHAMNOSUS GG CAPSULE PO SCH ×2 (12:11→22:03)
[2019-10-08] MEDS: SULFAMETHOX/TRIMETHOPRIM 200-40 MG/5 ML -20 ML UDCUP PO SCH (12:11)
[2019-10-08] MEDS: METOPROLOL TARTRATE 25 MG TABLET PO SCH ×2 (12:11→22:03)
[2019-10-08] MEDS: buPROPion 75 MG TABLET PO SCH ×2 (12:11→22:03)
[2019-10-08] MEDS: NYSTATIN POWDER 15 GM BOTTLE TOP SCH ×2 (12:12→22:03)
[2019-10-08] MEDS: DESITIN 4OZ/NYSTATIN 15 GRAM MIXTURE PASTE TOP SCH ×2 (12:12→22:03)
[2019-10-08] MEDS: SKIN HEALING OINT (AQUAPHOR) 50 GM TUBE TOP SCH ×2 (12:12→22:04)
[2019-10-09] MEDS: INSULIN REGULAR 100 UNIT/ML SUBCUT SCH ×4 (01:13→18:24)
[2019-10-09] MEDS: ALBUTEROL/IPRATROPIUM 3 ML NEB RESP TX SCH ×4 (01:19→19:05)
[2019-10-09 06:10] LABS: Albumin 1.8 G/DL (3.4-5.0); Bilirubin,Total 0.6 MG/DL (0.2-1.0); Calcium 8.4 MG/DL (8.5-10.1); Osmolality,Calculated 259.5 MOS/KG (273-304); Total Protein 7.8 G/DL (6.4-8.3)
[2019-10-09] MEDS ORDERED: METOPROLOL TARTRATE 5 MG/5 ML VIAL IV ONE (08:32)
[2019-10-09] MEDS: SULFAMETHOX/TRIMETHOPRIM 200-40 MG/5 ML -20 ML UDCUP PO SCH (09:29)
[2019-10-09] MEDS: METOPROLOL TARTRATE 25 MG TABLET PO SCH ×2 (09:30→21:49)
[2019-10-09] MEDS: LACTOBACILLUS RHAMNOSUS GG CAPSULE PO SCH ×2 (09:30→21:49)
[2019-10-09] MEDS: SKIN HEALING OINT (AQUAPHOR) 50 GM TUBE TOP SCH ×2 (09:30→21:49)
[2019-10-09] MEDS: DESITIN 4OZ/NYSTATIN 15 GRAM MIXTURE PASTE TOP SCH ×2 (09:30→21:50)
[2019-10-09] MEDS: INSULIN GLARGINE 100 UNIT/ML SUBCUT SCH (09:30)
[2019-10-09] MEDS: buPROPion 75 MG TABLET PO SCH ×2 (09:30→21:49)
[2019-10-09] MEDS: NYSTATIN POWDER 15 GM BOTTLE TOP SCH ×2 (09:30→21:49)
[2019-10-09] MEDS: QUEtiapine 25 MG TABLET PO SCH ×2 (09:30→21:49)
[2019-10-09] MEDS: FLUCONAZOLE INJ 200 MG in PREMIX 1 EACH IV SCH (12:42)
[2019-10-09] MEDS: PANTOPRAZOLE 40 MG VIAL IV SCH (12:44)
[2019-10-09] MEDS: MAGNESIUM SULF RIDER 4 GM in PREMIX 1 EACH IV PRN (16:36)
[2019-10-10] MEDS: ALBUTEROL/IPRATROPIUM 3 ML NEB RESP TX SCH ×4 (00:19→19:05)
[2019-10-10] MEDS: INSULIN REGULAR 100 UNIT/ML SUBCUT SCH ×5 (01:53→23:51)
[2019-10-10 05:34] LABS: Basophils # 0.1 10*3/uL (0.0-0.2); Basophils % 0.7 % (0.0-0.8); Eosinophils # 0.4 10*3/uL (0.0-0.87); Hematocrit 29.2 VOL% (35.7-47.0); Hemoglobin 9.3 GM/DL (12.0-16.0); Immature Granulocytes % 7.4 %; Lymphocytes # 1.7 10*3/uL (1.4-4.0); Lymphocytes % 11.4 % (21.3-54.2); Mean Corpuscular HGB Conc 31.8 GM/DL (32-36); Mean Corpuscular Volume 89.3 FL (87-102); Mean Platelet Volume 10.1 FL (9.6-12.0); Monocytes % 9.5 % (1.7-12.7); Platelet Count 403 T/CUMM (130-400); Red Blood Count 3.27 MC/CUMM (3.8-5.5); Red Cell Distribution Width 15.1 % (9.3-17.3); White Blood Count 14.9 T/CUMM (4-12)
[2019-10-10 05:52] LABS: Calcium 8.5 MG/DL (8.5-10.1); Osmolality,Calculated 262.4 MOS/KG (273-304)
[2019-10-10 05:55] LABS: Band Neutrophils 1 % (0-10); Eosinophils 2 % (0-10); Lymphocytes 9 % (20-55); Segmented Neutrophils 78 % (50-85); Total Cells Counted 100
[2019-10-10 05:56] LABS: Hypochromasia 1+; Microcytosis Slight; Platelet Estimate Adequate
[2019-10-10] MEDS: PANTOPRAZOLE 40 MG VIAL IV SCH (08:36)
[2019-10-10] MEDS: QUEtiapine 25 MG TABLET PO SCH ×2 (08:37→20:12)
[2019-10-10] MEDS: METOPROLOL TARTRATE 25 MG TABLET PO SCH ×2 (08:37→20:12)
[2019-10-10] MEDS: LACTOBACILLUS RHAMNOSUS GG CAPSULE PO SCH ×2 (08:37→20:12)
[2019-10-10] MEDS: buPROPion 75 MG TABLET PO SCH ×2 (08:37→20:12)
[2019-10-10] MEDS: SKIN HEALING OINT (AQUAPHOR) 50 GM TUBE TOP SCH ×2 (08:37→20:12)
[2019-10-10] MEDS: DESITIN 4OZ/NYSTATIN 15 GRAM MIXTURE PASTE TOP SCH ×2 (08:38→20:12)
[2019-10-10] MEDS: NYSTATIN POWDER 15 GM BOTTLE TOP SCH ×2 (08:38→20:12)
[2019-10-10] MEDS: SULFAMETHOX/TRIMETHOPRIM 200-40 MG/5 ML -20 ML UDCUP PO SCH (08:42)
[2019-10-10] MEDS: INSULIN GLARGINE 100 UNIT/ML SUBCUT SCH (09:11)
[2019-10-10] MEDS: FLUCONAZOLE INJ 200 MG in PREMIX 1 EACH IV SCH (12:26)
[2019-10-11] MEDS: ALBUTEROL/IPRATROPIUM 3 ML NEB RESP TX SCH ×4 (00:45→19:23)
[2019-10-11 03:29] LABS: Basophils # 0.1 10*3/uL (0.0-0.2); Basophils % 0.6 % (0.0-0.8); Eosinophils # 0.4 10*3/uL (0.0-0.87); Eosinophils % 3.5 % (0.00-10.9); Hematocrit 27.9 VOL% (35.7-47.0); Hemoglobin 8.7 GM/DL (12.0-16.0); Immature Granulocytes % 7.4 %; Immature Granulocytes Absolute 0.94 #; Lymphocytes # 1.5 10*3/uL (1.4-4.0); Lymphocytes % 11.8 % (21.3-54.2); Mean Corpuscular HGB Conc 31.2 GM/DL (32-36); Mean Corpuscular Volume 90.6 FL (87-102); Mean Platelet Volume 10.3 FL (9.6-12.0); Monocytes % 9.5 % (1.7-12.7); Neutrophils % 67.2 % (38.7-73.9); Platelet Count 396 T/CUMM (130-400); Red Blood Count 3.08 MC/CUMM (3.8-5.5); Red Cell Distribution Width 15.1 % (9.3-17.3); White Blood Count 12.7 T/CUMM (4-12)
[2019-10-11 03:53] LABS: Calcium 8.4 MG/DL (8.5-10.1); Osmolality,Calculated 259.7 MOS/KG (273-304)
[2019-10-11 05:10] LABS: Band Neutrophils 2 % (0-10); Eosinophils 5 % (0-10); Lymphocytes 8 % (20-55); Metamyelocytes 3 %; Myelocytes 2 %; Segmented Neutrophils 75 % (50-85); Total Cells Counted 100
[2019-10-11 05:20] LABS: Platelet Estimate Normal
[2019-10-11] MEDS: INSULIN REGULAR 100 UNIT/ML SUBCUT SCH ×4 (05:28→23:46)
[2019-10-11] MEDS ORDERED: MAGNESIUM SULF RIDER 2 GM in PREMIX 1 EACH IV ONE (08:30)
[2019-10-11] MEDS: SULFAMETHOX/TRIMETHOPRIM 200-40 MG/5 ML -20 ML UDCUP PO SCH (08:54)
[2019-10-11] MEDS: buPROPion 75 MG TABLET PO SCH ×2 (08:55→20:03)
[2019-10-11] MEDS: QUEtiapine 25 MG TABLET PO SCH ×2 (08:55→20:03)
[2019-10-11] MEDS: METOPROLOL TARTRATE 25 MG TABLET PO SCH (08:55)
[2019-10-11] MEDS: PANTOPRAZOLE 40 MG VIAL IV SCH (08:55)
[2019-10-11] MEDS: LACTOBACILLUS RHAMNOSUS GG CAPSULE PO SCH ×2 (08:55→20:03)
[2019-10-11] MEDS: DESITIN 4OZ/NYSTATIN 15 GRAM MIXTURE PASTE TOP SCH ×2 (08:56→20:04)
[2019-10-11] MEDS: NYSTATIN POWDER 15 GM BOTTLE TOP SCH ×2 (08:56→20:04)
[2019-10-11] MEDS: SKIN HEALING OINT (AQUAPHOR) 50 GM TUBE TOP SCH ×2 (08:57→20:04)
[2019-10-11] MEDS: INSULIN GLARGINE 100 UNIT/ML SUBCUT SCH (08:58)
[2019-10-11] MEDS: MAGNESIUM CHLORIDE 64 MG TABLET PO SCH ×2 (09:02→20:03)
[2019-10-11] MEDS ORDERED: SULFAMETHOX/TRIMETHOPRIM 800-160 MG TABLET PO SCH (15:00)
[2019-10-11] MEDS: METOPROLOL TARTRATE 50 MG TABLET PO SCH (20:07)
[2019-10-12] MEDS: ALBUTEROL/IPRATROPIUM 3 ML NEB RESP TX SCH ×3 (00:34→20:18)
[2019-10-12] MEDS: INSULIN REGULAR 100 UNIT/ML SUBCUT SCH ×3 (06:20→17:10)
[2019-10-12] MEDS: PANTOPRAZOLE 40 MG VIAL IV SCH (08:32)
[2019-10-12] MEDS: ELVITEG COB EMTRI TENOF ALAFEN PO SCH (08:32)
[2019-10-12] MEDS: QUEtiapine 25 MG TABLET PO SCH ×2 (08:33→21:13)
[2019-10-12] MEDS: buPROPion 75 MG TABLET PO SCH ×2 (08:33→21:14)
[2019-10-12] MEDS: METOPROLOL TARTRATE 50 MG TABLET PO SCH ×2 (08:33→21:14)
[2019-10-12] MEDS: SULFAMETHOX/TRIMETHOPRIM 800-160 MG TABLET PO SCH (08:33)
[2019-10-12] MEDS: MAGNESIUM CHLORIDE 64 MG TABLET PO SCH ×2 (08:33→21:14)
[2019-10-12] MEDS: LACTOBACILLUS RHAMNOSUS GG CAPSULE PO SCH ×2 (08:33→21:14)
[2019-10-12] MEDS: NYSTATIN POWDER 15 GM BOTTLE TOP SCH ×2 (08:34→21:16)
[2019-10-12] MEDS: INSULIN GLARGINE 100 UNIT/ML SUBCUT SCH (08:34)
[2019-10-12] MEDS: SKIN HEALING OINT (AQUAPHOR) 50 GM TUBE TOP SCH ×2 (08:34→21:16)
[2019-10-12] MEDS: DESITIN 4OZ/NYSTATIN 15 GRAM MIXTURE PASTE TOP SCH ×2 (08:34→21:16)
[2019-10-13] MEDS: INSULIN REGULAR 100 UNIT/ML SUBCUT SCH ×4 (00:20→17:14)
[2019-10-13] MEDS: ALBUTEROL/IPRATROPIUM 3 ML NEB RESP TX SCH ×4 (01:14→19:19)
[2019-10-13] MEDS: PANTOPRAZOLE 40 MG VIAL IV SCH (08:37)
[2019-10-13] MEDS: QUEtiapine 25 MG TABLET PO SCH ×2 (08:37→21:08)
[2019-10-13] MEDS: METOPROLOL TARTRATE 50 MG TABLET PO SCH ×2 (08:38→21:09)
[2019-10-13] MEDS: buPROPion 75 MG TABLET PO SCH ×2 (08:38→21:09)
[2019-10-13] MEDS: ELVITEG COB EMTRI TENOF ALAFEN PO SCH (08:38)
[2019-10-13] MEDS: MAGNESIUM CHLORIDE 64 MG TABLET PO SCH ×2 (08:38→21:09)
[2019-10-13] MEDS: SULFAMETHOX/TRIMETHOPRIM 800-160 MG TABLET PO SCH (08:38)
[2019-10-13] MEDS: LACTOBACILLUS RHAMNOSUS GG CAPSULE PO SCH ×2 (08:38→21:09)
[2019-10-13] MEDS: INSULIN GLARGINE 100 UNIT/ML SUBCUT SCH (08:45)
[2019-10-13] MEDS: SKIN HEALING OINT (AQUAPHOR) 50 GM TUBE TOP SCH ×2 (08:45→21:09)
[2019-10-13] MEDS: DESITIN 4OZ/NYSTATIN 15 GRAM MIXTURE PASTE TOP SCH ×2 (08:45→21:09)
[2019-10-13] MEDS: NYSTATIN POWDER 15 GM BOTTLE TOP SCH ×2 (08:45→21:09)
[2019-10-14] MEDS: INSULIN REGULAR 100 UNIT/ML SUBCUT SCH ×4 (00:10→17:32)
[2019-10-14] MEDS: ALBUTEROL/IPRATROPIUM 3 ML NEB RESP TX SCH ×5 (01:11→19:39)
[2019-10-14 06:54] LABS: Basophils # 0.1 10*3/uL (0.0-0.2); Basophils % 0.7 % (0.0-0.8); Eosinophils # 0.3 10*3/uL (0.0-0.87); Eosinophils % 3.2 % (0.00-10.9); Hematocrit 32.9 VOL% (35.7-47.0); Hemoglobin 10.1 GM/DL (12.0-16.0); Immature Granulocytes % 3.6 %; Lymphocytes # 1.8 10*3/uL (1.4-4.0); Lymphocytes % 21.4 % (21.3-54.2); Mean Corpuscular HGB Conc 30.7 GM/DL (32-36); Mean Corpuscular Volume 91.1 FL (87-102); Mean Platelet Volume 9.8 FL (9.6-12.0); Neutrophils % 62.1 % (38.7-73.9); Platelet Count 323 T/CUMM (130-400); Red Blood Count 3.61 MC/CUMM (3.8-5.5); White Blood Count 8.3 T/CUMM (4-12)
[2019-10-14] MEDS: PANTOPRAZOLE 40 MG VIAL IV SCH (08:49)
[2019-10-14] MEDS: ELVITEG COB EMTRI TENOF ALAFEN PO SCH (08:49)
[2019-10-14] MEDS: METOPROLOL TARTRATE 50 MG TABLET PO SCH ×2 (08:50→20:26)
[2019-10-14] MEDS: LACTOBACILLUS RHAMNOSUS GG CAPSULE PO SCH ×2 (08:50→20:26)
[2019-10-14] MEDS: SULFAMETHOX/TRIMETHOPRIM 800-160 MG TABLET PO SCH ×2 (08:50→20:30)
[2019-10-14] MEDS: MAGNESIUM CHLORIDE 64 MG TABLET PO SCH ×2 (08:50→20:26)
[2019-10-14] MEDS: QUEtiapine 25 MG TABLET PO SCH ×2 (08:50→20:26)
[2019-10-14] MEDS: buPROPion 75 MG TABLET PO SCH ×2 (08:50→20:26)
[2019-10-14] MEDS: DESITIN 4OZ/NYSTATIN 15 GRAM MIXTURE PASTE TOP SCH ×2 (08:51→20:30)
[2019-10-14] MEDS: SKIN HEALING OINT (AQUAPHOR) 50 GM TUBE TOP SCH ×2 (08:51→20:30)
[2019-10-14] MEDS: INSULIN GLARGINE 100 UNIT/ML SUBCUT SCH ×2 (08:51→13:03)
[2019-10-14] MEDS: NYSTATIN POWDER 15 GM BOTTLE TOP SCH ×2 (08:51→20:30)
[2019-10-14] MEDS: MICAFUNGIN 100 MG in SODIUM CHLORIDE 0.9% 100 ML IV SCH (13:04)
[2019-10-15] MEDS: ALBUTEROL/IPRATROPIUM 3 ML NEB RESP TX SCH ×3 (00:03→20:04)
[2019-10-15] MEDS: INSULIN REGULAR 100 UNIT/ML SUBCUT SCH ×5 (00:33→23:40)
[2019-10-15 07:57] LABS: Basophils # 0.1 10*3/uL (0.0-0.2); Basophils % 0.5 % (0.0-0.8); Eosinophils # 0.3 10*3/uL (0.0-0.87); Eosinophils % 2.8 % (0.00-10.9); Hematocrit 34.1 VOL% (35.7-47.0); Hemoglobin 10.6 GM/DL (12.0-16.0); Immature Granulocytes % 1.6 %; Immature Granulocytes Absolute 0.15 #; Lymphocytes # 1.7 10*3/uL (1.4-4.0); Mean Corpuscular HGB Conc 31.1 GM/DL (32-36); Mean Corpuscular Volume 90.5 FL (87-102); Mean Platelet Volume 9.9 FL (9.6-12.0); Monocytes % 6.2 % (1.7-12.7); Neutrophils % 69.9 % (38.7-73.9); Platelet Count 353 T/CUMM (130-400); Red Blood Count 3.77 MC/CUMM (3.8-5.5); Red Cell Distribution Width 15.1 % (9.3-17.3); White Blood Count 9.1 T/CUMM (4-12)
[2019-10-15 08:25] LABS: Calcium 8.9 MG/DL (8.5-10.1); Osmolality,Calculated 262.8 MOS/KG (273-304)
[2019-10-15] MEDS: METOPROLOL TARTRATE 50 MG TABLET PO SCH ×2 (08:57→20:02)
[2019-10-15] MEDS: LACTOBACILLUS RHAMNOSUS GG CAPSULE PO SCH ×2 (08:57→20:02)
[2019-10-15] MEDS: ELVITEG COB EMTRI TENOF ALAFEN PO SCH (08:58)
[2019-10-15] MEDS: SULFAMETHOX/TRIMETHOPRIM 800-160 MG TABLET PO SCH ×2 (08:58→20:01)
[2019-10-15] MEDS: QUEtiapine 25 MG TABLET PO SCH ×2 (08:58→20:02)
[2019-10-15] MEDS: buPROPion 75 MG TABLET PO SCH ×2 (08:58→20:05)
[2019-10-15] MEDS: MAGNESIUM CHLORIDE 64 MG TABLET PO SCH ×2 (08:58→20:02)
[2019-10-15] MEDS: DESITIN 4OZ/NYSTATIN 15 GRAM MIXTURE PASTE TOP SCH ×2 (08:59→20:03)
[2019-10-15] MEDS: SKIN HEALING OINT (AQUAPHOR) 50 GM TUBE TOP SCH ×2 (08:59→20:03)
[2019-10-15] MEDS: PANTOPRAZOLE 40 MG VIAL IV SCH (08:59)
[2019-10-15] MEDS: NYSTATIN POWDER 15 GM BOTTLE TOP SCH ×2 (09:00→20:03)
[2019-10-15] MEDS: INSULIN GLARGINE 100 UNIT/ML SUBCUT SCH (10:00)
[2019-10-15] MEDS: MICAFUNGIN 100 MG in SODIUM CHLORIDE 0.9% 100 ML IV SCH (11:56)
[2019-10-16] MEDS: ALBUTEROL/IPRATROPIUM 3 ML NEB RESP TX SCH ×4 (01:03→19:32)
[2019-10-16] MEDS: INSULIN REGULAR 100 UNIT/ML SUBCUT SCH ×3 (05:13→17:21)
[2019-10-16 06:42] LABS: Basophils # 0.1 10*3/uL (0.0-0.2); Basophils % 0.7 % (0.0-0.8); Eosinophils # 0.2 10*3/uL (0.0-0.87); Eosinophils % 2.1 % (0.00-10.9); Hematocrit 32.9 VOL% (35.7-47.0); Hemoglobin 10.2 GM/DL (12.0-16.0); Immature Granulocytes % 1.3 %; Immature Granulocytes Absolute 0.11 #; Lymphocytes # 1.8 10*3/uL (1.4-4.0); Lymphocytes % 20.6 % (21.3-54.2); Mean Corpuscular Volume 89.9 FL (87-102); Mean Platelet Volume 9.6 FL (9.6-12.0); Monocytes % 6.6 % (1.7-12.7); Neutrophils % 68.7 % (38.7-73.9); Platelet Count 338 T/CUMM (130-400); Red Blood Count 3.66 MC/CUMM (3.8-5.5); Red Cell Distribution Width 15.4 % (9.3-17.3); White Blood Count 8.6 T/CUMM (4-12)
[2019-10-16 07:00] LABS: Calcium 8.9 MG/DL (8.5-10.1); Osmolality,Calculated 263.8 MOS/KG (273-304)
[2019-10-16] MEDS: PANTOPRAZOLE 40 MG VIAL IV SCH (08:19)
[2019-10-16] MEDS: buPROPion 75 MG TABLET PO SCH ×2 (08:20→20:12)
[2019-10-16] MEDS: QUEtiapine 25 MG TABLET PO SCH ×2 (08:20→20:13)
[2019-10-16] MEDS: MAGNESIUM CHLORIDE 64 MG TABLET PO SCH ×2 (08:20→20:12)
[2019-10-16] MEDS: INSULIN GLARGINE 100 UNIT/ML SUBCUT SCH (08:20)
[2019-10-16] MEDS: METOPROLOL TARTRATE 50 MG TABLET PO SCH ×2 (08:21→20:12)
[2019-10-16] MEDS: LACTOBACILLUS RHAMNOSUS GG CAPSULE PO SCH ×2 (08:21→20:13)
[2019-10-16] MEDS: NYSTATIN POWDER 15 GM BOTTLE TOP SCH ×2 (08:21→20:12)
[2019-10-16] MEDS: SULFAMETHOX/TRIMETHOPRIM 800-160 MG TABLET PO SCH ×2 (08:21→20:12)
[2019-10-16] MEDS: SKIN HEALING OINT (AQUAPHOR) 50 GM TUBE TOP SCH ×2 (08:21→20:11)
[2019-10-16] MEDS: DESITIN 4OZ/NYSTATIN 15 GRAM MIXTURE PASTE TOP SCH ×2 (08:21→20:11)
[2019-10-16] MEDS: ELVITEG COB EMTRI TENOF ALAFEN PO SCH (08:25)
[2019-10-16] MEDS: SODIUM CHLORIDE 0.45% 1,000 ML IV SCH (12:13)
[2019-10-16] MEDS: MICAFUNGIN 100 MG in SODIUM CHLORIDE 0.9% 100 ML IV SCH (12:14)
[2019-10-16] MEDS: MAGNESIUM SULF RIDER 4 GM in PREMIX 1 EACH IV PRN (14:10)
[2019-10-17] MEDS: INSULIN REGULAR 100 UNIT/ML SUBCUT SCH ×4 (00:37→18:27)
[2019-10-17] MEDS: ALBUTEROL/IPRATROPIUM 3 ML NEB RESP TX SCH ×5 (01:38→19:11)
[2019-10-17] MEDS: SODIUM CHLORIDE 0.45% 1,000 ML IV SCH ×2 (06:29→20:35)
[2019-10-17] MEDS: PANTOPRAZOLE 40 MG VIAL IV SCH (09:12)
[2019-10-17] MEDS: INSULIN GLARGINE 100 UNIT/ML SUBCUT SCH (09:12)
[2019-10-17] MEDS: METOPROLOL TARTRATE 50 MG TABLET PO SCH ×2 (09:13→20:35)
[2019-10-17] MEDS: LACTOBACILLUS RHAMNOSUS GG CAPSULE PO SCH ×2 (09:13→20:35)
[2019-10-17] MEDS: buPROPion 75 MG TABLET PO SCH ×2 (09:13→20:36)
[2019-10-17] MEDS: ELVITEG COB EMTRI TENOF ALAFEN PO SCH (09:13)
[2019-10-17] MEDS: SULFAMETHOX/TRIMETHOPRIM 800-160 MG TABLET PO SCH ×2 (09:13→20:35)
[2019-10-17] MEDS: MAGNESIUM CHLORIDE 64 MG TABLET PO SCH ×2 (09:13→20:36)
[2019-10-17] MEDS: QUEtiapine 25 MG TABLET PO SCH ×2 (09:13→20:36)
[2019-10-17] MEDS: DESITIN 4OZ/NYSTATIN 15 GRAM MIXTURE PASTE TOP SCH ×2 (09:14→20:36)
[2019-10-17] MEDS: SKIN HEALING OINT (AQUAPHOR) 50 GM TUBE TOP SCH ×2 (09:14→20:35)
[2019-10-17] MEDS: NYSTATIN POWDER 15 GM BOTTLE TOP SCH ×2 (09:14→20:36)
[2019-10-17] MEDS: MICAFUNGIN 100 MG in SODIUM CHLORIDE 0.9% 100 ML IV SCH (12:31)
[2019-10-18] MEDS: INSULIN REGULAR 100 UNIT/ML SUBCUT SCH ×5 (00:12→23:54)
[2019-10-18] MEDS: ALBUTEROL/IPRATROPIUM 3 ML NEB RESP TX SCH ×4 (00:22→19:18)
[2019-10-18] MEDS: INSULIN GLARGINE 100 UNIT/ML SUBCUT SCH (08:42)
[2019-10-18] MEDS: PANTOPRAZOLE 40 MG VIAL IV SCH (08:42)
[2019-10-18] MEDS: METOPROLOL TARTRATE 50 MG TABLET PO SCH ×2 (08:43→20:48)
[2019-10-18] MEDS: QUEtiapine 25 MG TABLET PO SCH ×2 (08:43→20:49)
[2019-10-18] MEDS: MAGNESIUM CHLORIDE 64 MG TABLET PO SCH ×2 (08:43→20:48)
[2019-10-18] MEDS: SULFAMETHOX/TRIMETHOPRIM 800-160 MG TABLET PO SCH ×2 (08:43→20:48)
[2019-10-18] MEDS: LACTOBACILLUS RHAMNOSUS GG CAPSULE PO SCH ×2 (08:44→20:48)
[2019-10-18] MEDS: ELVITEG COB EMTRI TENOF ALAFEN PO SCH (08:44)
[2019-10-18] MEDS: DESITIN 4OZ/NYSTATIN 15 GRAM MIXTURE PASTE TOP SCH ×2 (08:44→20:55)
[2019-10-18] MEDS: SKIN HEALING OINT (AQUAPHOR) 50 GM TUBE TOP SCH ×2 (08:44→20:55)
[2019-10-18] MEDS: buPROPion 75 MG TABLET PO SCH ×2 (08:44→20:49)
[2019-10-18] MEDS: NYSTATIN POWDER 15 GM BOTTLE TOP SCH ×2 (08:44→20:55)
[2019-10-18 09:10] LABS: Calcium 9.2 MG/DL (8.5-10.1); Osmolality,Calculated 259.1 MOS/KG (273-304)
[2019-10-18] MEDS: SODIUM CHLORIDE 0.45% 1,000 ML IV SCH ×2 (10:47→22:28)
[2019-10-18] MEDS: MICAFUNGIN 100 MG in SODIUM CHLORIDE 0.9% 100 ML IV SCH (13:35)
[2019-10-19] MEDS: ALBUTEROL/IPRATROPIUM 3 ML NEB RESP TX SCH ×4 (03:40→19:50)
[2019-10-19] MEDS: INSULIN REGULAR 100 UNIT/ML SUBCUT SCH ×3 (06:17→17:30)
[2019-10-19 06:26] LABS: Basophils % 0.5 % (0.0-0.8); Eosinophils # 0.1 10*3/uL (0.0-0.87); Eosinophils % 1.4 % (0.00-10.9); Hematocrit 33.1 VOL% (35.7-47.0); Hemoglobin 10.1 GM/DL (12.0-16.0); Immature Granulocytes % 0.8 %; Immature Granulocytes Absolute 0.07 #; Lymphocytes # 1.4 10*3/uL (1.4-4.0); Lymphocytes % 16.5 % (21.3-54.2); Mean Corpuscular HGB Conc 30.5 GM/DL (32-36); Mean Corpuscular Volume 91.7 FL (87-102); Mean Platelet Volume 10.3 FL (9.6-12.0); Monocytes % 7.2 % (1.7-12.7); Neutrophils % 73.6 % (38.7-73.9); Platelet Count 265 T/CUMM (130-400); Red Blood Count 3.61 MC/CUMM (3.8-5.5); Red Cell Distribution Width 15.7 % (9.3-17.3); White Blood Count 8.4 T/CUMM (4-12)
[2019-10-19 06:57] LABS: Calcium 9.1 MG/DL (8.5-10.1); Osmolality,Calculated 257.1 MOS/KG (273-304)
[2019-10-19] MEDS: SULFAMETHOX/TRIMETHOPRIM 800-160 MG TABLET PO SCH (08:40)
[2019-10-19] MEDS: MAGNESIUM CHLORIDE 64 MG TABLET PO SCH ×2 (08:40→21:01)
[2019-10-19] MEDS: QUEtiapine 25 MG TABLET PO SCH ×2 (08:40→21:00)
[2019-10-19] MEDS: buPROPion 75 MG TABLET PO SCH ×2 (08:41→21:01)
[2019-10-19] MEDS: INSULIN GLARGINE 100 UNIT/ML SUBCUT SCH (08:41)
[2019-10-19] MEDS: METOPROLOL TARTRATE 50 MG TABLET PO SCH ×2 (08:41→21:01)
[2019-10-19] MEDS: LACTOBACILLUS RHAMNOSUS GG CAPSULE PO SCH ×2 (08:41→21:01)
[2019-10-19] MEDS: DESITIN 4OZ/NYSTATIN 15 GRAM MIXTURE PASTE TOP SCH ×2 (08:42→21:02)
[2019-10-19] MEDS: SKIN HEALING OINT (AQUAPHOR) 50 GM TUBE TOP SCH ×2 (08:42→21:02)
[2019-10-19] MEDS: ELVITEG COB EMTRI TENOF ALAFEN PO SCH (08:42)
[2019-10-19] MEDS: NYSTATIN POWDER 15 GM BOTTLE TOP SCH ×2 (08:42→21:02)
[2019-10-19] MEDS: PANTOPRAZOLE 40 MG VIAL IV SCH (13:35)
[2019-10-19] MEDS: MICAFUNGIN 100 MG in SODIUM CHLORIDE 0.9% 100 ML IV SCH (13:36)
[2019-10-19] MEDS ORDERED: SODIUM POLYSTYRENE SULFATE 15 GM/60 ML BOTTLE PO STA (13:54)
[2019-10-19] MEDS: GLUCAGON 1 MG VIAL IM PRN (16:59)
[2019-10-19] MEDS: DEXTROSE 10% 250 ML BAG IV PRN (17:07)
[2019-10-19] MEDS: SODIUM BICARB INJ 100 MEQ in DEXTROSE 5% NACL 0.45% 1,000 ML IV SCH (18:32)
[2019-10-19] MEDS: SODIUM CHLORIDE 0.45% 1,000 ML IV SCH (18:33)
[2019-10-20] MEDS: ALBUTEROL/IPRATROPIUM 3 ML NEB RESP TX SCH ×4 (00:30→19:05)
[2019-10-20 07:26] LABS: Calcium 8.9 MG/DL (8.5-10.1); Osmolality,Calculated 266.5 MOS/KG (273-304)
[2019-10-20] MEDS: PANTOPRAZOLE 40 MG VIAL IV SCH (09:02)
[2019-10-20] MEDS: METOPROLOL TARTRATE 50 MG TABLET PO SCH ×2 (09:03→20:36)
[2019-10-20] MEDS: NYSTATIN POWDER 15 GM BOTTLE TOP SCH ×2 (09:03→20:37)
[2019-10-20] MEDS: QUEtiapine 25 MG TABLET PO SCH ×2 (09:03→20:36)
[2019-10-20] MEDS: DESITIN 4OZ/NYSTATIN 15 GRAM MIXTURE PASTE TOP SCH ×2 (09:03→20:36)
[2019-10-20] MEDS: SKIN HEALING OINT (AQUAPHOR) 50 GM TUBE TOP SCH ×2 (09:03→20:36)
[2019-10-20] MEDS: ELVITEG COB EMTRI TENOF ALAFEN PO SCH (09:03)
[2019-10-20] MEDS: LACTOBACILLUS RHAMNOSUS GG CAPSULE PO SCH ×2 (09:03→20:36)
[2019-10-20] MEDS: MAGNESIUM CHLORIDE 64 MG TABLET PO SCH ×2 (09:03→20:36)
[2019-10-20] MEDS: buPROPion 75 MG TABLET PO SCH ×2 (09:04→20:36)
[2019-10-20] MEDS: SODIUM BICARB INJ 100 MEQ in DEXTROSE 5% NACL 0.45% 1,000 ML IV SCH (12:51)
[2019-10-20] MEDS: MICAFUNGIN 100 MG in SODIUM CHLORIDE 0.9% 100 ML IV SCH (13:15)
[2019-10-20] MEDS: INSULIN REGULAR 100 UNIT/ML SUBCUT SCH ×2 (13:16→17:48)
[2019-10-21] MEDS: ALBUTEROL/IPRATROPIUM 3 ML NEB RESP TX SCH ×4 (00:10→20:40)
[2019-10-21] MEDS: INSULIN REGULAR 100 UNIT/ML SUBCUT SCH ×4 (04:53→17:28)
[2019-10-21 05:23] LABS: Calcium 9.4 MG/DL (8.5-10.1); Osmolality,Calculated 264.4 MOS/KG (273-304)
[2019-10-21] MEDS: PANTOPRAZOLE 40 MG VIAL IV SCH (08:45)
[2019-10-21] MEDS: DESITIN 4OZ/NYSTATIN 15 GRAM MIXTURE PASTE TOP SCH ×2 (08:46→20:33)
[2019-10-21] MEDS: METOPROLOL TARTRATE 50 MG TABLET PO SCH ×2 (08:46→20:33)
[2019-10-21] MEDS: QUEtiapine 25 MG TABLET PO SCH ×2 (08:46→20:33)
[2019-10-21] MEDS: MAGNESIUM CHLORIDE 64 MG TABLET PO SCH ×2 (08:46→20:32)
[2019-10-21] MEDS: LACTOBACILLUS RHAMNOSUS GG CAPSULE PO SCH ×2 (08:46→20:32)
[2019-10-21] MEDS: buPROPion 75 MG TABLET PO SCH ×2 (08:46→20:32)
[2019-10-21] MEDS: SKIN HEALING OINT (AQUAPHOR) 50 GM TUBE TOP SCH ×2 (08:47→20:33)
[2019-10-21] MEDS: NYSTATIN POWDER 15 GM BOTTLE TOP SCH ×2 (08:47→20:33)
[2019-10-21] MEDS: ELVITEG COB EMTRI TENOF ALAFEN PO SCH (08:47)
[2019-10-21] MEDS: INSULIN GLARGINE 100 UNIT/ML SUBCUT SCH (11:36)
[2019-10-21] MEDS ORDERED: SODIUM POLYSTYRENE SULFATE 15 GM/60 ML BOTTLE PO STA (11:58)
[2019-10-21] MEDS: MICAFUNGIN 100 MG in SODIUM CHLORIDE 0.9% 100 ML IV SCH (12:27)
[2019-10-22] MEDS: ALBUTEROL/IPRATROPIUM 3 ML NEB RESP TX SCH ×4 (00:25→18:40)
[2019-10-22] MEDS: INSULIN REGULAR 100 UNIT/ML SUBCUT SCH ×4 (02:36→17:43)
[2019-10-22 07:28] LABS: Calcium 9.2 MG/DL (8.5-10.1); Osmolality,Calculated 264.5 MOS/KG (273-304)
[2019-10-22] MEDS ORDERED: SULFAMETHOX/TRIMETHOPRIM 800-160 MG TABLET PO SCH (09:00)
[2019-10-22] MEDS: INSULIN GLARGINE 100 UNIT/ML SUBCUT SCH (09:24)
[2019-10-22] MEDS: buPROPion 75 MG TABLET PO SCH ×2 (09:25→22:10)
[2019-10-22] MEDS: PANTOPRAZOLE 40 MG VIAL IV SCH (09:25)
[2019-10-22] MEDS: MAGNESIUM CHLORIDE 64 MG TABLET PO SCH ×2 (09:25→22:10)
[2019-10-22] MEDS: METOPROLOL TARTRATE 50 MG TABLET PO SCH ×2 (09:25→22:09)
[2019-10-22] MEDS: QUEtiapine 25 MG TABLET PO SCH ×2 (09:25→22:10)
[2019-10-22] MEDS: LACTOBACILLUS RHAMNOSUS GG CAPSULE PO SCH ×2 (09:25→22:09)
[2019-10-22] MEDS: NYSTATIN POWDER 15 GM BOTTLE TOP SCH ×2 (09:26→22:09)
[2019-10-22] MEDS: SKIN HEALING OINT (AQUAPHOR) 50 GM TUBE TOP SCH ×2 (09:26→22:09)
[2019-10-22] MEDS: ELVITEG COB EMTRI TENOF ALAFEN PO SCH (09:26)
[2019-10-22] MEDS: DESITIN 4OZ/NYSTATIN 15 GRAM MIXTURE PASTE TOP SCH ×2 (09:26→22:10)
[2019-10-22] MEDS: GLUCAGON 1 MG VIAL IM PRN (17:15)
[2019-10-22] MEDS: DEXTROSE 10% 250 ML BAG IV PRN ×2 (17:28→20:55)
[2019-10-23] MEDS: ALBUTEROL/IPRATROPIUM 3 ML NEB RESP TX SCH ×3 (00:20→13:14)
[2019-10-23] MEDS: INSULIN REGULAR 100 UNIT/ML SUBCUT SCH ×3 (00:22→12:08)
[2019-10-23] MEDS: QUEtiapine 25 MG TABLET PO SCH (08:51)
[2019-10-23] MEDS: buPROPion 75 MG TABLET PO SCH (08:51)
[2019-10-23] MEDS: LACTOBACILLUS RHAMNOSUS GG CAPSULE PO SCH (08:51)
[2019-10-23] MEDS: METOPROLOL TARTRATE 50 MG TABLET PO SCH (08:51)
[2019-10-23] MEDS: MAGNESIUM CHLORIDE 64 MG TABLET PO SCH (08:51)
[2019-10-23] MEDS: NYSTATIN POWDER 15 GM BOTTLE TOP SCH (08:52)
[2019-10-23] MEDS: INSULIN GLARGINE 100 UNIT/ML SUBCUT SCH (08:52)
[2019-10-23] MEDS: ELVITEG COB EMTRI TENOF ALAFEN PO SCH (08:52)
[2019-10-23] MEDS: DESITIN 4OZ/NYSTATIN 15 GRAM MIXTURE PASTE TOP SCH (08:53)
[2019-10-23] MEDS: PANTOPRAZOLE 40 MG VIAL IV SCH (08:53)
[2019-10-23] MEDS: SKIN HEALING OINT (AQUAPHOR) 50 GM TUBE TOP SCH (08:53)
[2019-10-23 11:45] VITALS: BP 134/82
== END 2019-10-23 16:49 | disposition home or self-care (01) | DRG 710 ==
LOC: EDBD → EDUNIT# → N.ED 01:49 → SUATTDRO 07:29 → N.EDINP 07:29 → N.ICU 07:34 → N.4E 10-02 16:09
PROVIDERS: ADMIT Internal Medicine; ATTEND Family Medicine